=== PATIENT | female | born 1995 | race African-American/Black ===

== ENCOUNTER 2018-01-24 21:45 | Inpatient (IN) | payer OTHER ==
[~2018-01-24] VITALS: Ht 160 cm; Wt 93.4 kg
[2018-01-24 21:53] VITALS: BP 102/52
[2018-01-24] MEDS ORDERED: NACL 0.9% 1,000 ML IV SCH (22:14)
[2018-01-24] MEDS ORDERED: ONDANSETRON 4 MG/2 ML VIAL IVP ONE (22:15)
[2018-01-24] MEDS ORDERED: PANTOPRAZOLE 40 MG INJ VIAL IVP ONE (22:15)
[2018-01-24] MEDS ORDERED: KETOROLAC 30 MG/ML VIAL IVP ONE (22:50)
[2018-01-24 22:53] LABS: MEAN CORPUSCULAR HGB CONC 33 g/dL (33-37)
[2018-01-24 23:02] LABS: HEMATOCRIT 40.2 % (36-48); HEMOGLOBIN 13.1 g/dL (12.0-16.0); MEAN CORPUSCULAR HEMOGLOBIN 29 pg (27-31); MEAN CORPUSCULAR VOLUME 87.8 fL (80-94); PLATELET COUNT (AUTO) 501 K/uL (140-450); RED BLOOD CELL COUNT(AUTO) 4.58 MIL/uL (4.20-5.40)
[2018-01-24 23:15] LABS: WHITE BLOOD COUNT (AUTO) 62.6 K/uL (4.8-10.8)
[2018-01-24 23:16] LABS: ANION GAP 17.4 (8-16); CARBON DIOXIDE 21.3 mmol/L (21-32); CREATININE 2.8 mg/dL (0.6-1.3); POTASSIUM 3.7 mmol/L (3.5-5.1)
[2018-01-24] MEDS ORDERED: NACL 0.9% 1,500 ML IV ONE (23:20)
[2018-01-24] MEDS ORDERED: PIPERACILLIN/TAZOBACTAM 3.375 GM in DEXTROSE 5% 50 ML IV ONE (23:20)
[2018-01-24] MEDS ORDERED: NACL 0.9% 250 ML IV ONE (23:20)
[2018-01-24] MEDS ORDERED: ACETAMINOPHEN EXTRA STRENGTH 500 MG TAB PO ONE (23:20)
[2018-01-24 23:22] LABS: ALBUMIN 3.1 g/dL (3.4-5.0)
[2018-01-24 23:29] LABS: LYMPHOCYTES % (MANUAL) 1 % (20-46); METAMYELOCYTES % 1 % (0-0)
[2018-01-24] MEDS ORDERED: BUS5 PO (23:36)
[2018-01-24] MEDS ORDERED: ALBU0.0912 IH (23:36)
[2018-01-24] MEDS ORDERED: LAM25 PO (23:36)
[2018-01-24] MEDS ORDERED: TRAZ-343 PO (23:36)
[2018-01-24 23:40] LABS: APPEARANCE,URINE TURBID (CLEAR); BLOOD, URINE SMALL (NEGATIVE); COLOR,URINE YELLOW (YELLOW); LEUKOCYTE ESTERASE ,URINE TRACE (NEGATIVE); NITRITE, URINE NEGATIVE (NEGATIVE); UGLUCOSE NEGATIVE (NEGATIVE)
[2018-01-24] MEDS ORDERED: PIPERACILLIN/TAZOBACTAM 3.375 GM VIAL IV ONE (23:43)
[2018-01-24 23:44] LABS: BILIRUBIN,URINE MODERATE (NEGATIVE)
[2018-01-24 23:45] LABS: RBC,URINE 0-5 (RARE) /HPF (0-5)
[2018-01-24 23:47] LABS: FINE GRANULAR CASTS,URINE 0-2 /LPF (None Seen); WBC,URINE 60-80 /HPF (0-5)
[2018-01-25] VITALS (12 sets, daily range): BP systolic 80–108; BP diastolic 34–55
[2018-01-25] MEDS ORDERED: MORPHINE SULFATE 4 MG/ML SYR IVP PRN ×2 (00:35→12:50)
[2018-01-25] MEDS ORDERED: HYDROcodone/APAP 5/325 MG 1 TAB TAB PO PRN (00:35)
[2018-01-25] MEDS ORDERED: VANCOMYCIN PER PHARMACY MC PRN (00:45)
[2018-01-25] MEDS: ALBUTEROL 0.083% 2.5 MG/3 ML NEBU IH PRN ×2 (00:50→07:49)
[2018-01-25] MEDS: LEVOFLOXACIN 250 MG/D5 PREMIX 50 ML IV SCH (01:04)
[2018-01-25] MEDS: DEXT 5% / NACL 0.45% 1,000 ML IV SCH ×3 (02:45→15:08)
[2018-01-25] MEDS ORDERED: PIPERACILLIN/TAZOBACTAM 2.25 GM in DEXTROSE 5% 50 ML IV SCH (05:00)
[2018-01-25] MEDS ORDERED: WATER STERILE 20 ML MC ONE (05:23)
[2018-01-25] MEDS ORDERED: VANCOMYCIN 500 MG VIAL PO SCH (06:00)
[2018-01-25] MEDS ORDERED: MAG SULF 2000 MG/WATER PREMIX 50 ML IV ONE (08:15)
[2018-01-25] MEDS ORDERED: NACL 0.9% 500 ML IV ONE (08:15)
[2018-01-25] MEDS ORDERED: MAG SULF 2000 MG/WATER PREMIX 50 ML IV SCH (08:24)
[2018-01-25] MEDS ORDERED: NACL 0.9% 1,000 ML IV ONE (08:25)
[2018-01-25] MEDS: ACETAMINOPHEN 325 MG TAB PO PRN (08:35)
[2018-01-25] MEDS: ALBUMIN HUMAN 25% 100 ML IV SCH ×2 (08:38→20:40)
[2018-01-25] MEDS ORDERED: busPIRone 5 MG TAB PO SCH (09:00)
[2018-01-25] MEDS ORDERED: lamoTRIgine 25 MG TAB PO SCH (09:00)
[2018-01-25] MEDS: ONDANSETRON 4 MG/2 ML VIAL IVP PRN ×3 (09:05→18:08)
[2018-01-25] MEDS: MIDODRINE 5 MG TAB PO SCH ×3 (09:22→18:09)
[2018-01-25] MEDS ORDERED: VANCOMYCIN 1GM/DEXT 5% PREMIX 200 ML IV SCH (10:00)
[2018-01-25] MEDS ORDERED: traMADol 50 MG TAB PO PRN ×2 (10:15→10:30)
[2018-01-25 10:31] LABS: HEMATOCRIT 32.2 % (36-48); HEMOGLOBIN 10.4 g/dL (12.0-16.0); MEAN CORPUSCULAR HEMOGLOBIN 29 pg (27-31); MEAN CORPUSCULAR HGB CONC 32 g/dL (33-37); MEAN CORPUSCULAR VOLUME 88.6 fL (80-94); PLATELET COUNT (AUTO) 400 K/uL (140-450); RED BLOOD CELL COUNT(AUTO) 3.63 MIL/uL (4.20-5.40); RED CELL DISTRIBUTION WIDTH 15.3 % (11.6-13.7)
[2018-01-25 10:34] LABS: WHITE BLOOD COUNT (AUTO) 58.9 K/uL (4.8-10.8)
[2018-01-25 11:05] LABS: METAMYELOCYTES % 2 % (0-0)
[2018-01-25 11:26] LABS: ANION GAP 17.3 (8-16); CARBON DIOXIDE 18.3 mmol/L (21-32); CREATININE 2.9 mg/dL (0.6-1.3); POTASSIUM 3.6 mmol/L (3.5-5.1)
[2018-01-25] MEDS ORDERED: PHARMACY COMMENTS MC SCH (12:00)
[2018-01-25] MEDS ORDERED: KETOROLAC 30 MG/ML VIAL IVP PRN (12:20)
[2018-01-25] MEDS: VANCOMYCIN 500 MG VIAL PO SCH ×2 (12:24→17:15)
[2018-01-25] MEDS: PIPER/TAZO 2.25GM/D5W PREMIX 50 ML IV SCH ×2 (12:26→20:40)
[2018-01-25] MEDS ORDERED: KETOROLAC 15 MG/ML VIAL IVP PRN (12:30)
[2018-01-25] MEDS: MORPHINE SULFATE 4 MG/ML SYR IVP PRN ×2 (13:18→18:32)
[2018-01-25 14:55] LABS: BILIRUBIN,URINE SMALL (NEGATIVE); BLOOD, URINE TRACE-I (NEGATIVE); COLOR,URINE YELLOW (YELLOW); LEUKOCYTE ESTERASE ,URINE TRACE (NEGATIVE); NITRITE, URINE NEGATIVE (NEGATIVE); UGLUCOSE NEGATIVE (NEGATIVE)
[2018-01-25 14:56] LABS: APPEARANCE,URINE SLIGHTLY HAZY (CLEAR)
[2018-01-25] MEDS ORDERED: PHARMACY COMMENTS MC PRN (15:43)
[2018-01-25 15:46] LABS: RBC,URINE 3-10 (FEW) /HPF (0-5)
[2018-01-25 15:47] LABS: URINE AMORPHOUS URATE 2+ /HPF (None Seen)
[2018-01-25] MEDS: SODIUM BICARBONATE 650 MG TAB PO SCH (17:13)
[2018-01-25] MEDS ORDERED: SODIUM BICARBONATE 650 MG TAB PO ONE (18:00)
[2018-01-25] MEDS: NACL 0.9% 1,000 ML IV SCH (18:26)
[2018-01-25] MEDS ORDERED: ALBUMIN HUMAN 25% 100 ML IV ONE (19:00)
[2018-01-25] MEDS: traZODone 50 MG TAB PO SCH (20:40)
[2018-01-25] MEDS: busPIRone 5 MG TAB PO SCH (20:40)
[2018-01-26] VITALS (9 sets, daily range): BP systolic 91–113; BP diastolic 37–63
[2018-01-26] MEDS: MORPHINE SULFATE 4 MG/ML SYR IVP PRN ×4 (00:21→20:42)
[2018-01-26] MEDS: VANCOMYCIN 500 MG VIAL PO SCH ×4 (00:22→18:08)
[2018-01-26] MEDS: SODIUM BICARBONATE 650 MG TAB PO SCH ×3 (00:22→12:04)
[2018-01-26] MEDS: LEVOFLOXACIN 250 MG/D5 PREMIX 50 ML IV SCH (00:25)
[2018-01-26] MEDS: NACL 0.9% 1,000 ML IV SCH ×2 (03:45→17:00)
[2018-01-26] MEDS: ACETAMINOPHEN 325 MG TAB PO PRN ×2 (04:28→08:32)
[2018-01-26] MEDS: PIPER/TAZO 2.25GM/D5W PREMIX 50 ML IV SCH ×3 (05:45→20:36)
[2018-01-26] MEDS: MIDODRINE 5 MG TAB PO SCH ×3 (06:30→18:07)
[2018-01-26 06:57] LABS: ANION GAP 17.9 (8-16); CARBON DIOXIDE 19.9 mmol/L (21-32); CREATININE 2.4 mg/dL (0.6-1.3); POTASSIUM 3.8 mmol/L (3.5-5.1)
[2018-01-26] MEDS: ONDANSETRON 4 MG/2 ML VIAL IVP PRN ×2 (07:59→12:04)
[2018-01-26] MEDS: lamoTRIgine 25 MG TAB PO SCH (08:33)
[2018-01-26] MEDS: busPIRone 5 MG TAB PO SCH ×2 (08:33→20:40)
[2018-01-26] MEDS ORDERED: VANCOMYCIN 1,500 MG in DEXTROSE 5% 500 ML IV SCH (09:00)
[2018-01-26 10:17] LABS: HEMATOCRIT 32.8 % (36-48); HEMOGLOBIN 10.4 g/dL (12.0-16.0); MEAN CORPUSCULAR HEMOGLOBIN 28 pg (27-31); MEAN CORPUSCULAR HGB CONC 32 g/dL (33-37); MEAN CORPUSCULAR VOLUME 88.4 fL (80-94); PLATELET COUNT (AUTO) 416 K/uL (140-450); RED BLOOD CELL COUNT(AUTO) 3.71 MIL/uL (4.20-5.40); RED CELL DISTRIBUTION WIDTH 15.8 % (11.6-13.7)
[2018-01-26 10:49] LABS: WHITE BLOOD COUNT (AUTO) 49.8 K/uL (4.8-10.8)
[2018-01-26 10:50] LABS: LYMPHOCYTES % (MANUAL) 2 % (20-46); MONOCYTES % (MANUAL) 3 % (5-12)
[2018-01-26] MEDS: traZODone 50 MG TAB PO SCH (20:40)
[2018-01-27] VITALS: BP 118/57
[2018-01-27] MEDS: NACL 0.9% 1,000 ML IV SCH ×3 (00:10→18:45)
[2018-01-27] MEDS: LEVOFLOXACIN 250 MG/D5 PREMIX 50 ML IV SCH (01:09)
[2018-01-27] MEDS: ALBUTEROL 0.083% 2.5 MG/3 ML NEBU IH PRN (01:30)
[2018-01-27] MEDS: ACETAMINOPHEN 325 MG TAB PO PRN ×2 (02:07→08:22)
[2018-01-27] MEDS: MORPHINE SULFATE 4 MG/ML SYR IVP PRN ×4 (02:08→16:54)
[2018-01-27 04:00] VITALS: BP 91/37
[2018-01-27] MEDS: PIPER/TAZO 2.25GM/D5W PREMIX 50 ML IV SCH ×3 (04:51→20:20)
[2018-01-27] MEDS: VANCOMYCIN 500 MG VIAL PO SCH ×4 (06:00→18:43)
[2018-01-27 06:26] LABS: HEMATOCRIT 29.2 % (36-48); HEMOGLOBIN 9.6 g/dL (12.0-16.0); MEAN CORPUSCULAR HEMOGLOBIN 29 pg (27-31); MEAN CORPUSCULAR HGB CONC 33 g/dL (33-37); MEAN CORPUSCULAR VOLUME 86.9 fL (80-94); PLATELET COUNT (AUTO) 370 K/uL (140-450); RED BLOOD CELL COUNT(AUTO) 3.36 MIL/uL (4.20-5.40); RED CELL DISTRIBUTION WIDTH 15.2 % (11.6-13.7)
[2018-01-27] MEDS: MIDODRINE 5 MG TAB PO SCH ×3 (07:02→18:44)
[2018-01-27 08:05] VITALS: BP 113/70
[2018-01-27 08:12] LABS: LYMPHOCYTES % (MANUAL) 2 % (20-46); MONOCYTES % (MANUAL) 2 % (5-12); WHITE BLOOD COUNT (AUTO) 37.2 K/uL (4.8-10.8)
[2018-01-27] MEDS: busPIRone 5 MG TAB PO SCH ×2 (08:22→22:02)
[2018-01-27] MEDS: lamoTRIgine 25 MG TAB PO SCH (08:22)
[2018-01-27 09:31] LABS: ALBUMIN 2.2 g/dL (3.4-5.0); ANION GAP 16.7 (8-16); CARBON DIOXIDE 18.7 mmol/L (21-32); CREATININE 1.4 mg/dL (0.6-1.3); POTASSIUM 3.4 mmol/L (3.5-5.1); TOTAL BILIRUBIN 1.7 mg/dL (0.0-1.0)
[2018-01-27] MEDS: VANCOMYCIN 750 MG in DEXTROSE 5% 250 ML IV SCH ×2 (10:30→22:03)
[2018-01-27] MEDS ORDERED: PRO5 PO (10:58)
[2018-01-27] MEDS ORDERED: Vancomycin Per Pharmacy MC (10:58)
[2018-01-27] MEDS ORDERED: ONDA2SOL45 IVP (10:58)
[2018-01-27] MEDS ORDERED: MORP4SOL10 IVP (10:58)
[2018-01-27] MEDS ORDERED: PRON IH (10:58)
[2018-01-27] MEDS ORDERED: VAN500I PO (10:58)
[2018-01-27] MEDS ORDERED: TRAM50TA3 PO (10:58)
[2018-01-27 11:37] VITALS: BP 95/49
[2018-01-27] MEDS: ONDANSETRON 4 MG/2 ML VIAL IVP PRN ×3 (12:44→20:20)
[2018-01-27 16:00] VITALS: BP 108/64
[2018-01-27] MEDS ORDERED: MAGNESIUM OXIDE 400 MG TAB PO SCH (16:00)
[2018-01-27 20:00] VITALS: BP 133/74
[2018-01-27] MEDS: traZODone 50 MG TAB PO SCH (22:02)
[2018-01-28 00:20] VITALS: BP 115/74
[2018-01-28] MEDS: ACETAMINOPHEN 325 MG TAB PO PRN (00:25)
[2018-01-28] MEDS: LEVOFLOXACIN 250 MG/D5 PREMIX 50 ML IV SCH (00:25)
[2018-01-28] MEDS: MORPHINE SULFATE 4 MG/ML SYR IVP PRN ×4 (00:26→18:36)
[2018-01-28] MEDS: VANCOMYCIN 500 MG VIAL PO SCH ×4 (00:32→17:16)
[2018-01-28 04:30] VITALS: BP 113/56
[2018-01-28] MEDS: PIPER/TAZO 2.25GM/D5W PREMIX 50 ML IV SCH ×2 (05:11→14:03)
[2018-01-28] MEDS: NACL 0.9% 1,000 ML IV SCH (06:10)
[2018-01-28] MEDS: MIDODRINE 5 MG TAB PO SCH ×3 (06:39→19:00)
[2018-01-28 08:00] VITALS: BP 120/70
[2018-01-28 08:03] LABS: ANION GAP 13.2 (8-16); CARBON DIOXIDE 23.5 mmol/L (21-32); CREATININE 1.1 mg/dL (0.6-1.3); POTASSIUM 3.7 mmol/L (3.5-5.1)
[2018-01-28] MEDS: busPIRone 5 MG TAB PO SCH (08:58)
[2018-01-28] MEDS: lamoTRIgine 25 MG TAB PO SCH (08:59)
[2018-01-28] MEDS ORDERED: VANCOMYCIN 1GM/DEXT 5% PREMIX 200 ML IV SCH (10:00)
[2018-01-28 12:00] VITALS: BP 125/67
[2018-01-28] MEDS: ONDANSETRON 4 MG/2 ML VIAL IVP PRN (13:24)
[2018-01-28 13:51] LABS: HEMATOCRIT 32.5 % (36-48); MEAN CORPUSCULAR HEMOGLOBIN 29 pg (27-31); MEAN CORPUSCULAR HGB CONC 34 g/dL (33-37); MEAN CORPUSCULAR VOLUME 85.7 fL (80-94); PLATELET COUNT (AUTO) 380 K/uL (140-450); RED BLOOD CELL COUNT(AUTO) 3.79 MIL/uL (4.20-5.40); RED CELL DISTRIBUTION WIDTH 15.5 % (11.6-13.7)
[2018-01-28 14:10] LABS: WHITE BLOOD COUNT (AUTO) 30.7 K/uL (4.8-10.8)
[2018-01-28 14:15] LABS: EOSINOPHILS % (MANUAL) 4 % (0-4); LYMPHOCYTES % (MANUAL) 7 % (20-46); MONOCYTES % (MANUAL) 3 % (5-12)
[2018-01-28] MEDS ORDERED: VANCOMYCIN PER PHARMACY MC PRN (14:15)
[2018-01-28] MEDS ORDERED: ONDANSETRON 4 MG/2 ML VIAL IVP PRN (14:20)
[2018-01-28] MEDS ORDERED: ALBUTEROL 0.083% 2.5 MG/3 ML NEBU INH PRN (14:20)
[2018-01-28 16:00] VITALS: BP 102/52
[2018-01-28] MEDS ORDERED: traZODone 50 MG TAB PO SCH (21:00)
[2018-01-29] MEDS ORDERED: LEVOFLOXACIN 250 MG/D5 PREMIX 50 ML IV SCH (01:00)
== END 2018-01-28 19:00 | disposition short-term general hospital (02) | DRG 720 ==
LOC: MED 21:45 → MIC 01-25 00:41 → MTU 01-26 16:45
PROVIDERS: ADMIT Hospitalist; ATTEND Hospitalist
DX: A41.9 Sepsis, unspecified organism (principal); N17.0 Acute kidney failure with tubular necrosis; R65.21 Severe sepsis with septic shock; J84.81 Lymphangioleiomyomatosis; J18.9 Pneumonia, unspecified organism; E87.8 Other disorders of electrolyte and fluid balance, not elsewhere classified; E87.1 Hypo-osmolality and hyponatremia; N39.0 Urinary tract infection, site not specified; E87.6 Hypokalemia; E86.0 Dehydration; R09.89 Other specified symptoms and signs involving the circulatory and respiratory systems; M89.9 Disorder of bone, unspecified; I89.0 Lymphedema, not elsewhere classified; E86.1 Hypovolemia; F32.9 Major depressive disorder, single episode, unspecified; F41.9 Anxiety disorder, unspecified; G40.909 Epilepsy, unspecified, not intractable, without status epilepticus; N18.9 Chronic kidney disease, unspecified; Z90.81 Acquired absence of spleen; Z79.899 Other long term (current) drug therapy; Z90.49 Acquired absence of other specified parts of digestive tract
CPT/HCPCS: 36415; 36600; 71045; 71250; 76705; 76770; 80048; 80053; 80202; 81001; 82803; 83605; 83735; 84300; 85025; 85610; 85730; 87040; 87070; 87081; 87086; 87205; 87804; 89220; 93005; 94640; 96361; 96365; 96367; 96375; 99291; C9113; J1885; J1956; J2270; J2405; J2543; J3370; J3475; J7030; J7060; J7613; P9046; Q0092

== ENCOUNTER 2018-02-27 11:24 | Inpatient (IN) | payer OTHER ==
[~2018-02-27] VITALS: Ht 160 cm; Wt 82.6 kg
[~2018-02-27 11:24] MED LIST: ALBU0.0912 IH; BUS5 PO; LAM25 PO; MORP4SOL10 IVP; ONDA2SOL45 IVP; PRO5 PO; PRON IH; TRAM50TA3 PO; TRAZ-343 PO; VAN500I PO; Vancomycin Per Pharmacy MC
[2018-02-27 11:40] VITALS: BP 130/67
[2018-02-27] MEDS ORDERED: ALBUTEROL SULFATE/IPRATROPIU 3 ML SOL IH ONE (11:55)
[2018-02-27] MEDS ORDERED: predniSONE 20 MG TAB PO ONE (11:55)
[2018-02-27] MEDS ORDERED: ALBUTEROL 0.083% 2.5 MG/3 ML NEBU INH ONE (11:55)
--- NOTE | 2018-02-27 12:00 | NUR ---
22F BIB SELF C/O SOB X 3 DAYS. PT SAT AT 98% AT THIS TIME, PT STATES SHE HAD A FEVER OF 102 YESTERDAY. PT ALSO HAS NON-PRODUCTIVE COUGH, + VOMITING, + NAUSEA, -DIARRHEA. PT IS AOX4 TO PERSON, TIME, SITUATION, AND PLACE, RR ARE EVEN AND UNLABORED. CLEAR SPEECH WITH FULL SETENCES. LUNG SOUND DIMISHED BL AT BASES. PULSE NT=248% ON RA. SKIN IS DRY/WARM/COLOR APPRIORIATE FOR ETHNICITY. ABD SOFT AND NON TENDER. NAD. PT CHANGED INTO GOWN AND TO PULSE OX/PULSE MONITORING. AWAITIING ER MD AMBROSIO.
--- NOTE | 2018-02-27 12:04 | NUR ---
ADMITTING DX: SOB HX: ASTHMA AWAKE AND ALERT RESPONSIVE TO RF MANAGER VERBAL COMMANDS HFW POSITION EDUCATION PROVIDED TO PATIENT WITH ACKNOWLEDGEMENT ON HHN THERAPY AND RESPIRATORY DRUGS HHN THERAPY GIVEN ORDERED
--- NOTE | 2018-02-27 12:06 | NUR ---
rt by bedside administering breathing txt; patient tolerating well
--- NOTE | 2018-02-27 12:09 | NUR ---
PATIENT REFUSED HHN THERAPY AFTRE 5 MINS PATIENT STATES "THAT IT IS PAINFUL TO BREATH" LILI/JASON NOTIFIED
--- NOTE | 2018-02-27 12:12 | NUR ---
patient refused breathing txt after 5 minutes of breathing txt; informed er md jones
[2018-02-27] MEDS ORDERED: MORPHINE SULFATE 4 MG/ML SYR IM ONE (13:00)
--- NOTE | 2018-02-27 13:30 | NUR ---
administered pain medication per er md order. will continue to monitor.
[2018-02-27] MEDS ORDERED: VANCOMYCIN 1,000 MG in DEXTROSE 5% 250 ML IV ONE (13:50)
--- NOTE | 2018-02-27 14:20 | NUR ---
DR. BUI MADE AWARE THAT PT STATES SHE FEELS NAUSEOUS AT THIS TIME. ORDERS TO BE PUT IN
[2018-02-27 14:29] LABS: HEMATOCRIT 33.6 % (36-48); HEMOGLOBIN 10.9 g/dL (12.0-16.0); MEAN CORPUSCULAR HEMOGLOBIN 28 pg (27-31); MEAN CORPUSCULAR HGB CONC 32 g/dL (33-37); MEAN CORPUSCULAR VOLUME 85.4 fL (80-94); PLATELET COUNT (AUTO) 629 K/uL (140-450); RED BLOOD CELL COUNT(AUTO) 3.94 MIL/uL (4.20-5.40); RED CELL DISTRIBUTION WIDTH 15.3 % (11.6-13.7); WHITE BLOOD COUNT (AUTO) 28.8 K/uL (4.8-10.8)
[2018-02-27] MEDS ORDERED: MORPHINE SULFATE 4 MG/ML SYR IVP ONE (14:35)
[2018-02-27] MEDS ORDERED: ONDANSETRON 4 MG/2 ML VIAL IVP ONE (14:35)
[2018-02-27] MEDS ORDERED: PIPERACILLIN/TAZOBACTAM 3.375 GM in DEXTROSE 5% 50 ML IV ONE (14:35)
--- NOTE | 2018-02-27 14:35 | NUR ---
PT WAS NOT IN UNIT AT TIME OF ORDER.
[2018-02-27] MEDS ORDERED: VANCOMYCIN 1,000 MG VIAL ONE (14:38)
[2018-02-27 14:48] LABS: ALBUMIN 3.2 g/dL (3.4-5.0); ANION GAP 16.7 (8-16); CARBON DIOXIDE 21.1 mmol/L (21-32); CREATININE 0.7 mg/dL (0.6-1.3); POTASSIUM 3.8 mmol/L (3.5-5.1); TOTAL BILIRUBIN 0.4 mg/dL (0.0-1.0)
[2018-02-27 15:26] LABS: LYMPHOCYTES % (MANUAL) 2 % (20-46); MONOCYTES % (MANUAL) 2 % (5-12)
[2018-02-27] MEDS ORDERED: traMADol 50 MG TAB PO PRN (15:35)
[2018-02-27] MEDS ORDERED: HYDROcodone/APAP 5/325 MG 1 TAB TAB PO PRN (15:35)
[2018-02-27] MEDS ORDERED: ALBUTEROL 0.083% 2.5 MG/3 ML NEBU INH PRN (15:35)
[2018-02-27] MEDS ORDERED: ONDANSETRON 4 MG/2 ML VIAL IVP PRN (15:35)
[2018-02-27] MEDS ORDERED: ACETAMINOPHEN 325 MG TAB PO PRN (15:35)
[2018-02-27 16:07] LABS: APPEARANCE,URINE CLEAR (CLEAR); BILIRUBIN,URINE NEGATIVE (NEGATIVE); BLOOD, URINE 1+ (NEGATIVE); COLOR,URINE YELLOW (YELLOW); LEUKOCYTE ESTERASE ,URINE NEGATIVE (NEGATIVE); NITRITE, URINE NEGATIVE (NEGATIVE); UGLUCOSE NEGATIVE (NEGATIVE)
--- NOTE | 2018-02-27 16:25 | NUR ---
Patient will be admitted to [facility]. Admited to Med Surg. Will go to room 111-B. Belongings list completed. Bedside Report to Morris GOMEZ.
--- NOTE | 2018-02-27 16:30 | NUR ---
RECEIVED REPORT FROM ER NURSE. PT IN STABLE CONDITION. RESPIRATIONS EVEN AND UNLABORED. IV INTACT AND PATENT. REVIEWED CARE PLAN WITH PT, PT VERBALIZED UNDERSTANDING. SAFETY MEASURES IN PLACE. CALL LIGHT AT BEDSIDE. BED IN LOW POSITION. WILL CONTINUE TO MONITOR.
[2018-02-27 16:33] LABS: RBC,URINE 0-5 (RARE) /HPF (0-5); WBC,URINE 0-5 (RARE) /HPF (0-5)
[2018-02-27] MEDS ORDERED: VANCOMYCIN PER PHARMACY MC PRN (17:05)
--- NOTE | 2018-02-27 17:30 | NUR ---
PT SIGNED CONSENT FORM FOR ABDOMINAL US WITH CONTRAST.
[2018-02-27] MEDS: HYDROcodone/APAP 5/325 MG 1 TAB TAB PO PRN (17:49)
[2018-02-27] MEDS: DEXT 5% / NACL 0.45% 1,000 ML IV SCH (18:51)
--- NOTE | 2018-02-27 19:25 | NUR ---
RECEIVED PATIENT AWAKE SITTING ON BED WATCHING TV. PATIENT AAOX4, EXPLAINED PLAN OF CARE. CALL LIGHT WITHIN REACH. BED IN LOW LOCKED POSITION. CALL LIGHT WITHIN REACH. WILL CONTINUE TO MONITOR.
--- NOTE | 2018-02-27 19:25 | NUR ---
GAVE REPORT TO SAW BOSS NURSE FOR CONTINUITY OF CARE. PT IN STABLE CONDITION.
[2018-02-27 19:48] VITALS: BP 104/63
[2018-02-27] MEDS: traZODone 50 MG TAB PO SCH (20:38)
[2018-02-27] MEDS: busPIRone 5 MG TAB PO SCH (20:38)
[2018-02-27] MEDS: PIPER/TAZO 3.375GM/D5W PREMIX 50 ML IV SCH (20:45)
[2018-02-27] MEDS ORDERED: PIPERACILLIN/TAZOBACTAM 3.375 GM in DEXTROSE 5% 50 ML IV SCH (21:00)
--- NOTE | 2018-02-27 21:00 | NUR ---
V/S TAKEN AND RECORDED. SCHEDULE MEDICATION GIVEN AND TOLERATED WELL. NO S/SO FO DISTRESS NOTED AT THIS TIME. WILL CONTINUE TO MONITOR. CALL LIGHT WITHIN REACH.
[2018-02-28] VITALS: BP 110/58
--- NOTE | 2018-02-28 | NUR ---
V/ S TAKEN AND RECORDED. NO S/S OF DISTRESS NOTED. ALL NEEDS ATTENDED. WILL CONTINUE TO MONITOR.
[2018-02-28] MEDS: VANCOMYCIN 1,250 MG in DEXTROSE 5% 250 ML IV SCH ×2 (02:27→20:11)
--- NOTE | 2018-02-28 04:00 | NUR ---
SEEN PATIENT ASLEEP ON BED IN HIGH FOWLERS POSITION. NO S/S OF DISTRESS NOTED AT THIS TIME. CALL LIGHT EITHIN REACH. WILL CONTINUE TO MONITOR.
[2018-02-28] MEDS: DEXT 5% / NACL 0.45% 1,000 ML IV SCH ×2 (04:52→18:12)
[2018-02-28] MEDS: PIPER/TAZO 3.375GM/D5W PREMIX 50 ML IV SCH ×4 (04:56→21:44)
--- NOTE | 2018-02-28 07:15 | NUR ---
GAVE REPORT TO AM SHIFT RN AT BEDSIDE FOR CONTINUITY OF CARE. PATIENT IN STABLE CONDITION.
--- NOTE | 2018-02-28 07:16 | NUR ---
RECEIVED REPORT FROM THERMITE WELDER NURSE FOR CONTINUITY OF CARE. PT IN STABLE CONDITION. RESPIRATIONS EVEN AND UNLABORED. IV INTACT AND PATENT. SAFETY MEASURES IN PLACE. BED IN LOW POSITION. CALL LIGHT AT BEDSIDE. WILL CONTINUE TO MONITOR.
[2018-02-28 07:43] LABS: ALBUMIN 2.6 g/dL (3.4-5.0); ANION GAP 14.7 (8-16); CREATININE 0.7 mg/dL (0.6-1.3); POTASSIUM 3.7 mmol/L (3.5-5.1); TOTAL BILIRUBIN 0.4 mg/dL (0.0-1.0)
--- NOTE | 2018-02-28 07:46 | NUR ---
RECEIVED PATIENT ON ROOM AIR, O2 SAT 100%. BREATH SOUNDS COARSE. DENIES SOB. NO HHN GIVEN, NOT INDICATED AT THIS TIME. NO RESPIRATORY DISTRESS NOTED AT THIS TIME. WILL CONTINUE TO MONITOR.
[2018-02-28 07:53] LABS: BASOPHILS % (AUTO) 0.2 % (0.0-2.0); EOSINOPHILS % (AUTO) 0.1 % (0.0-4.0); HEMATOCRIT 27.9 % (36-48); LYMPHOCYTES # (AUTO) 1.7 K/uL (2.5-16.5); LYMPHOCYTES % (AUTO) 5.9 % (20.5-51.1); MEAN CORPUSCULAR HEMOGLOBIN 28 pg (27-31); MEAN CORPUSCULAR HGB CONC 32 g/dL (33-37); MEAN CORPUSCULAR VOLUME 85.3 fL (80-94); MONOCYTES # (AUTO) 2.2 K/uL (0.8-1.0); MONOCYTES % (AUTO) 7.5 % (1.7-9.3); NEUTROPHILS % (AUTO) 86.3 % (42.2-75.2); PLATELET COUNT (AUTO) 530 K/uL (140-450); RED BLOOD CELL COUNT(AUTO) 3.27 MIL/uL (4.20-5.40); RED CELL DISTRIBUTION WIDTH 15.2 % (11.6-13.7)
[2018-02-28 08:00] VITALS: BP 121/60
--- NOTE | 2018-02-28 08:24 | NUR ---
PATIENT HAS BEEN SCREENED AND CATEGORIZED HIGH NUTRITION RISK. PATIENT WILL BE SEEN WITHIN 1-2 DAYS OF ADMISSION. 02/28/18-03/01/[address]
[2018-02-28] MEDS: busPIRone 5 MG TAB PO SCH ×2 (09:27→20:39)
--- NOTE | 2018-02-28 10:00 | NUR ---
RECEIVED SPUTUM SAMPLE, SENT TO LAB. WILL CONTINUE TO MONITOR.
--- NOTE | 2018-02-28 13:00 | NUR ---
UNABLE TO PLACE 20G IV FOR CAT SCAN PROCEDURE WILL CONTACT DOCTOR WITH ISSUE.
--- NOTE | 2018-02-28 13:01 | NUR ---
PT C/O IV LINE LEFT AC PAIN, PT REQUEST PICC LINE AT THIS TIME. UNABLE TO GIVE ZOSYN AT THIS TIME.
--- NOTE | 2018-02-28 13:02 | NUR ---
IV LINE WAS REMOVED DUE TO PT COMPLAINT OF PAIN. NO SKIN INJURY NOTED. IV REMOVED LUMEN INTACT.
--- NOTE | 2018-02-28 13:35 | NUR ---
LAB CALLED FOR ANOTHER SPUTUM SAMPLE FROM PT. NOT ENOUGH SPUTUM FOR THE TEST ORDERED. WILL COLLECT.
--- NOTE | 2018-02-28 14:00 | NUR ---
VANCO NOT ADMINISTERED DUE TO NO IV ACCESS.
--- NOTE | 2018-02-28 15:29 | NUR ---
PICC LINE PLACED IN LEFT UPPER ARM. WILL CONTINUE TO MONITOR.
[2018-02-28 15:46] LABS: PROTHROMBIN TIME 10.8 secs (10.8-13.4)
[2018-02-28 16:00] VITALS: BP 114/67
--- NOTE | 2018-02-28 16:00 | NUR ---
DRY KILN OPERATOR HELPER CALLED TO INFORM NURSE WAITING ON PICC LINE PLACEMENT REPORT BEFORE CAT SCAN CAN BE PERFORMED.
--- NOTE | 2018-02-28 18:10 | NUR ---
PT TAKEN TO FOR CAT SCAN. WILL CONTINUE TO MONITOR.
--- NOTE | 2018-02-28 19:25 | NUR ---
GAVE REPORT TO NIGHT NURSE FOR CONTINUITY OF CARE. PT IN STABLE CONDITION.
--- NOTE | 2018-02-28 19:30 | NUR ---
RECEIVED PATIENT RESTING ON BED IN HIGH FOWLERS POSITION. EXPLAIN PLAN OF CARE TO PATIENT AND VERBALIZED UNDERSTANDING. BED IN LOW LOCKED POSITION. CALL LIGHT WITHIN REACH. WILL CONTINUE TO MONITOR.
[2018-02-28] MEDS: traZODone 50 MG TAB PO SCH (20:39)
--- NOTE | 2018-02-28 21:00 | NUR ---
BASELINE V/S TAKEN AND RECORDED. SCHEDULE MEDICATION GIVEN AND TOLERATED WELL. DENIES PAIN AT THIS TIME. NO RESPIRATORY DISTRESS NOTED AT THIS TIME. PATIENT IN HIGH FOWLERS POSITION SUPPORTED BY PILLOW FOR COMFORT. CALL LIGHT WITHIN REACH. ALL NEEDS ATTENDED. WILL CONTINUE TO MONITOR.
[2018-03-01] VITALS: BP 105/52
--- NOTE | 2018-03-01 | NUR ---
V/S TAKEN AND RECORDED. NO S/S OF RESPIRATORY DISTRESS AT THIS TIME. WILL CONTINUE TO MONITOR.
[2018-03-01] MEDS: DEXT 5% / NACL 0.45% 1,000 ML IV SCH (02:00)
[2018-03-01] MEDS: VANCOMYCIN 1,250 MG in DEXTROSE 5% 250 ML IV SCH (02:00)
--- NOTE | 2018-03-01 02:00 | NUR ---
VANCOCIN NOT GIVEN AT THIS TIME. STILL WAITING FOR VANCOMYCIN THROUGH RESULT.CHARGE NURSE AWARE.
[2018-03-01] MEDS ORDERED: LORazepam 0.5 MG TAB PO PRN (02:25)
[2018-03-01] MEDS: PIPER/TAZO 3.375GM/D5W PREMIX 50 ML IV SCH ×2 (05:00→12:35)
--- NOTE | 2018-03-01 07:20 | NUR ---
ENDORSEMENT GIVEN TO AM SHIFT RN AT BEDSIDE FOR CONTINUITY OF CARE. PATIENT IN STABLE CONDITION.
[2018-03-01 07:51] LABS: BASOPHILS # (AUTO) 0.1 K/uL (0.00-0.22); BASOPHILS % (AUTO) 1.4 % (0.0-2.0); EOSINOPHILS # (AUTO) 0.3 K/uL (0-0.4); EOSINOPHILS % (AUTO) 3.2 % (0.0-4.0); HEMATOCRIT 29.5 % (36-48); HEMOGLOBIN 9.6 g/dL (12.0-16.0); LYMPHOCYTES # (AUTO) 1.5 K/uL (2.5-16.5); LYMPHOCYTES % (AUTO) 16.4 % (20.5-51.1); MEAN CORPUSCULAR HEMOGLOBIN 28 pg (27-31); MEAN CORPUSCULAR HGB CONC 33 g/dL (33-37); MONOCYTES # (AUTO) 1.3 K/uL (0.8-1.0); MONOCYTES % (AUTO) 14.3 % (1.7-9.3); NEUTROPHILS # (AUTO) 6.1 K/uL (1.8-7.7); NEUTROPHILS % (AUTO) 64.7 % (42.2-75.2); PLATELET COUNT (AUTO) 555 K/uL (140-450); RED BLOOD CELL COUNT(AUTO) 3.42 MIL/uL (4.20-5.40); RED CELL DISTRIBUTION WIDTH 15.3 % (11.6-13.7); WHITE BLOOD COUNT (AUTO) 9.4 K/uL (4.8-10.8)
--- NOTE | 2018-03-01 07:55 | NUR ---
PATIENT WAS AWAKE, ALERT. RESPIRATION EVEN, UNLABOR ON ROOM AIR. SKIN DRY AND WARM. MID LINE PATENT AND INTACT. COMPLAINED OF CHEST PAIN, THROBBING, RADIATE TO NECK, WILL MEDICATE PER ORDER. PLAN OF CARE WAS DISCUSSED WITH PATIENT. BED AT LOW POSITION, SIDE RAILS UP. CALL LIGHT WITHIN REACH
[2018-03-01 08:00] VITALS: BP 122/59
[2018-03-01 08:05] LABS: ANION GAP 14.1 (8-16); CARBON DIOXIDE 22.4 mmol/L (21-32); CREATININE 0.8 mg/dL (0.6-1.3); POTASSIUM 3.5 mmol/L (3.5-5.1); TOTAL BILIRUBIN 0.3 mg/dL (0.0-1.0)
[2018-03-01 08:06] LABS: ALBUMIN 2.5 g/dL (3.4-5.0)
--- NOTE | 2018-03-01 09:00 | NUR ---
PATIENT WAS AWAKE, ALERT. RESPIRATION EVEN, UNLABOR ON ROOM AIR. NO DISTRESS NOTED AT THIS TIME
[2018-03-01] MEDS: HYDROcodone/APAP 5/325 MG 1 TAB TAB PO PRN (09:10)
[2018-03-01] MEDS: busPIRone 5 MG TAB PO SCH (09:10)
--- NOTE | 2018-03-01 12:47 | NUR ---
DR. MCCORMICK WAS UNABLE TO CLEAR THE PATIENT DUE TO RESULT PENDING SPUTUM AND URINE CULTURE. PATIENT REQUESTED TO LEAVE A. DR. DUGAN WAS MADE AWARE. OK TO GIVE PATIENT PRESCRIPTIONS PER DR. DUGAN
--- NOTE | 2018-03-01 13:15 | NUR ---
RISKS OF LEAVING AMA WAS EXPLAINED TO PATIENT. PATIENT VERBALIZED UNDERSTANDING. AMA FORM WAS SIGN. MID LINE WAS REMOVED, CATHETER INTACT, NO ACTIVE BLEEDING SEEN. PRESCRIPTION WAS GIVEN AND EXPLAINED TO PATIENT. PATIENT VERBALIZED UNDERSTANDING. ID BAND WAS REMOVED. ALL BELONGINGS WERE TAKEN WITH THE PATIENT AND FAMILY.
[2018-03-01] MEDS ORDERED: VANCOMYCIN 1,250 MG in DEXTROSE 5% 250 ML IV SCH (20:00)
== END 2018-03-01 13:15 | disposition left against medical advice (07) | DRG 720 ==
LOC: MED 11:24 → MTU 15:38 → OBSVTOIN 02-28 09:24
PROVIDERS: ADMIT Hospitalist; ATTEND Hospitalist
PROC: 05HY33Z Insertion of Infusion Device into Upper Vein, Percutaneous Approach (ICD-10-PCS; principal; 2018-02-28)
DX: A41.50 Gram-negative sepsis, unspecified (principal); J84.81 Lymphangioleiomyomatosis; G40.909 Epilepsy, unspecified, not intractable, without status epilepticus; J45.909 Unspecified asthma, uncomplicated; Z79.899 Other long term (current) drug therapy; Z79.51 Long term (current) use of inhaled steroids; Z90.49 Acquired absence of other specified parts of digestive tract; Z90.81 Acquired absence of spleen; Z53.21 Procedure and treatment not carried out due to patient leaving prior to being seen by health care provider; E44.1 Mild protein-calorie malnutrition
CPT/HCPCS: 96372; 96374; 96375; 99218; 99285; G0378; 36415; 70492; 71045; 71270; 74170; 80053; 80202; 81001; 81025; 83605; 83880; 85025; 85610; 86140; 87040; 87070; 87081; 87086; 87186; 87205; 87449; 94640; C1751; J2270; J2405; J2543; J3370; J7060; J7512; J7613; J7620; Q0092; Q9967

== ENCOUNTER 2018-08-26 07:49 | Emergency (ER) | payer OTHER ==
[~2018-08-26] VITALS: Ht 160 cm; Wt 86.2 kg
[2018-08-26 07:50] VITALS: BP 120/63
--- NOTE | 2018-08-26 07:50 | NUR ---
PT TRIAGED AT BEDSIDE BED 11
--- NOTE | 2018-08-26 07:53 | NUR ---
Patient ambulated to bed 11 at this time.
--- NOTE | 2018-08-26 07:55 | NUR ---
BIB SELF C/O LEFT UPPER TOOTH PAIN X YESTERDAY & C/O LEFT SIDED CHEST PAIN RADIATING TO LEFT SHOULDER& LEFT UPPER BACK X AT 6 AM TODAY.HX: TRACIE'S PEÑA SYNDROME, LYMPHANGIOMATOSIS, HYPOTENSION. DENIES N/V/D; SKIN IS PINK/WARM/DRY; AAOX4 WITH EVEN AND STEADY GAIT;PATIENT STATES PAIN OF 10/10 AT THIS TIME; PATIENT POSITIONED FOR COMFORT; HOB ELEVATED; BEDRAILS UP X1; BED DOWN. ER MD MADE AWARE OF PT STATUS.
--- NOTE | 2018-08-26 08:06 | NUR ---
DR. FOSTER AT BEDSIDE TO EVALUATE PT.
[2018-08-26] MEDS ORDERED: KETOROLAC 60 MG/2 ML VIAL IM ONE (08:15)
--- NOTE | 2018-08-26 08:44 | NUR ---
x-RAY AT BEDSIDE
--- NOTE | 2018-08-26 08:58 | NUR ---
Lab at bedside
[2018-08-26 09:14] LABS: BASOPHILS % (AUTO) 0.3 % (0.0-2.0); EOSINOPHILS # (AUTO) 0.2 K/uL (0-0.4); EOSINOPHILS % (AUTO) 1.6 % (0.0-4.0); HEMATOCRIT 37.1 % (36-48); HEMOGLOBIN 12.3 g/dL (12.0-16.0); LYMPHOCYTES # (AUTO) 1.6 K/uL (2.5-16.5); LYMPHOCYTES % (AUTO) 11.4 % (20.5-51.1); MEAN CORPUSCULAR HEMOGLOBIN 30 pg (27-31); MEAN CORPUSCULAR HGB CONC 33 g/dL (33-37); MEAN CORPUSCULAR VOLUME 89.6 fL (80-94); MONOCYTES % (AUTO) 7.2 % (1.7-9.3); NEUTROPHILS # (AUTO) 11.1 K/uL (1.8-7.7); NEUTROPHILS % (AUTO) 79.5 % (42.2-75.2); PLATELET COUNT (AUTO) 364 K/uL (140-450); RED BLOOD CELL COUNT(AUTO) 4.13 MIL/uL (4.20-5.40); RED CELL DISTRIBUTION WIDTH 14.6 % (11.6-13.7)
--- NOTE | 2018-08-26 09:47 | NUR ---
Patient being reevaluated by dr manzo at bedside.
[2018-08-26 10:22] LABS: APPEARANCE,URINE SL CLOUDY (CLEAR); BILIRUBIN,URINE NEGATIVE (NEGATIVE); BLOOD, URINE NEGATIVE (NEGATIVE); COLOR,URINE YELLOW (YELLOW); LEUKOCYTE ESTERASE ,URINE NEGATIVE (NEGATIVE); NITRITE, URINE NEGATIVE (NEGATIVE); UGLUCOSE NEGATIVE (NEGATIVE)
[2018-08-26 10:43] LABS: ANION GAP 12.9 (8-16); CARBON DIOXIDE 22.9 mmol/L (21-32); CREATININE 0.7 mg/dL (0.6-1.3); POTASSIUM 3.8 mmol/L (3.5-5.1)
[2018-08-26 10:54] LABS: TOTAL BILIRUBIN 0.6 mg/dL (0.0-1.0)
[2018-08-26 10:55] LABS: ALBUMIN 3.7 g/dL (3.4-5.0)
[2018-08-26 11:05] VITALS: BP 107/53
--- NOTE | 2018-08-26 11:05 | NUR ---
Patient discharged with v/s stable. Written and verbal after care instructions given and explained. Patient alert, oriented and verbalized understanding of instructions. Ambulatory with steady gait. All questions addressed prior to discharge. ID band removed. Patient advised to follow up with PMD. Rx of penicillin & naprosyn given. Patient educated on indication of medication including possible reaction and side effects. Opportunity to ask questions provided and answered.
== END 2018-08-26 11:05 | disposition home or self-care (01) ==
LOC: MED 07:49
DX: K08.89 Other specified disorders of teeth and supporting structures (principal); R07.89 Other chest pain; J45.909 Unspecified asthma, uncomplicated; Z79.891 Long term (current) use of opiate analgesic; Z79.899 Other long term (current) drug therapy; Z79.2 Long term (current) use of antibiotics
CPT/HCPCS: 36415; 71045; 80053; 81003; 81025; 84484; 85025; 93005; 96372; 99284; J1885; Q0092

== ENCOUNTER 2018-12-29 06:16 | Emergency (ER) | payer OTHER ==
[~2018-12-29] VITALS: Ht 160 cm; Wt 84.8 kg
--- NOTE | 2018-12-29 06:23 | NUR ---
PT TAKEN TO BED 7
[2018-12-29 06:29] VITALS: BP 135/68
--- NOTE | 2018-12-29 06:30 | NUR ---
23/F PRESENTED TO ED WITH C/O LT KNEE PAIN S/P GETTING OUT OF BED, STATES KNEE "POPS OUT OF PLACE OFTEN, BUT USUALLY ABLE TO PUT IT BACK BUT NOT ABLE TO THIS TIME" PT STATES UNABLE TO BARE WEIGHT ON LT LEG. 10/10 PAIN UPON AMBULATION. VSS. PT STATES SHE DID NOT TAKE ANY PAIN MEDICATIONS PRIOR TO ARRIVING TO ED. NO SIGNS OF DISTRESS. WILL CONTINUE TO MONITOR. DENIES ALLERGIES PAST MED HX- "BONE CONDITION"
--- NOTE | 2018-12-29 06:48 | NUR ---
PT TAKEN TO XRAY
--- NOTE | 2018-12-29 06:57 | NUR ---
PT RETURN FROM XRAY
--- NOTE | 2018-12-29 07:09 | NUR ---
GAVE BEDSIDE REPORT TO DAYSHIFT JASON ARNETT.
--- NOTE | 2018-12-29 07:11 | NUR ---
RECEIVED REPORT FROM IC DESIGN ENGINEER RN. PT RESTING IN BED. DENIES PAIN WHILE RESTING IN BED. NO DISTRESS NOTED AT THIS TIME. FAMILY AT THE BEDSIDE. WILL CONTINUE TO MONITOR.
--- NOTE | 2018-12-29 07:31 | NUR ---
PT BEING EVALUATED BY ER AT THIS TIME.
--- NOTE | 2018-12-29 07:46 | NUR ---
PT BEING TAUGHT HOW TO USE CRUTCHES BY EMT. PT ABLE TO WALK WITH CRUTCHES. NO C/O PAIN.
--- NOTE | 2018-12-29 07:49 | NUR ---
KNEE IMMOBILIZER WAS APPLIED TO PATIENTS LEFT KNEE WITHOUT ANY ISSUES AND PATIENT DEMONSTRATED PROPER USE OF CRUTCHES.
[2018-12-29 07:53] VITALS: BP 115/54
--- NOTE | 2018-12-29 07:54 | NUR ---
Patient discharged with v/s stable. Written and verbal after care instructions given and explained. Patient alert, oriented and verbalized understanding of instructions. Ambulatory WITH CRUTCHES. All questions addressed prior to discharge. ID band removed. Patient advised to follow up with PMD. Rx of NAPROXEN 500 MG given. Patient educated on indication of medication including possible reaction and side effects. Opportunity to ask questions provided and answered.
== END 2018-12-29 07:54 | disposition home or self-care (01) ==
LOC: MED 06:16
DX: S89.92XA Unspecified injury of left lower leg, initial encounter (principal); J45.909 Unspecified asthma, uncomplicated; Z79.899 Other long term (current) drug therapy; X58.XXXA Exposure to other specified factors, initial encounter; Y93.89 Activity, other specified; Y92.89 Other specified places as the place of occurrence of the external cause; Y99.8 Other external cause status
CPT/HCPCS: 29505; 73562; 99283

== ENCOUNTER 2019-01-13 12:27 | Emergency (ER) | payer OTHER ==
[~2019-01-13] VITALS: Ht 160 cm; Wt 85.3 kg
[2019-01-13 12:37] VITALS: BP 111/58
--- NOTE | 2019-01-13 12:49 | NUR ---
23/F BIB SELF C/O N/V & INTERMITTENT EPIGASTRIC PAIN RADIATING TO BILAT FLANKS 10/ X1 DAY . PT ALSO REPORTS CONSTIPATION. DENIES DYSURIA, FREQUENCY, FEVER. HX: GORHAMS PEÑA SYNDROME, LYMPHANGIOMA, BIPOLAR . PATIENT POSITIONED FOR COMFORT; HOB ELEVATED; BEDRAILS UP X1; BED DOWN. ER MD MADE AWARE OF PT STATUS.
--- NOTE | 2019-01-13 13:04 | NUR ---
LAB AT BEDSIDE.
[2019-01-13 13:13] LABS: BASOPHILS % (AUTO) 0.4 % (0.0-2.0); EOSINOPHILS # (AUTO) 0.1 K/uL (0-0.4); EOSINOPHILS % (AUTO) 1.3 % (0.0-4.0); HEMATOCRIT 40.9 % (36-48); HEMOGLOBIN 13.6 g/dL (12.0-16.0); LYMPHOCYTES % (AUTO) 9.9 % (20.5-51.1); MEAN CORPUSCULAR HEMOGLOBIN 30 pg (27-31); MEAN CORPUSCULAR HGB CONC 33 g/dL (33-37); MEAN CORPUSCULAR VOLUME 89.7 fL (80-94); MONOCYTES # (AUTO) 0.7 K/uL (0.8-1.0); MONOCYTES % (AUTO) 7.3 % (1.7-9.3); NEUTROPHILS # (AUTO) 7.9 K/uL (1.8-7.7); NEUTROPHILS % (AUTO) 81.1 % (42.2-75.2); PLATELET COUNT (AUTO) 429 K/uL (140-450); RED BLOOD CELL COUNT(AUTO) 4.56 MIL/uL (4.20-5.40); WHITE BLOOD COUNT (AUTO) 9.8 K/uL (4.8-10.8)
[2019-01-13 13:26] LABS: ANION GAP 15.8 (8-16); POTASSIUM 3.8 mmol/L (3.5-5.1)
[2019-01-13 13:27] LABS: ALBUMIN 3.8 g/dL (3.4-5.0); CREATININE 0.7 mg/dL (0.6-1.3); TOTAL BILIRUBIN 0.7 mg/dL (0.0-1.0)
[2019-01-13 13:33] LABS: APPEARANCE,URINE BLOODY (CLEAR); BILIRUBIN,URINE 1+ (NEGATIVE); BLOOD, URINE 3+ (NEGATIVE); COLOR,URINE RED (YELLOW); LEUKOCYTE ESTERASE ,URINE TRACE (NEGATIVE); NITRITE, URINE NEGATIVE (NEGATIVE); PH,URINE 6.5 (5.0-9.0); UGLUCOSE NEGATIVE (NEGATIVE)
[2019-01-13 13:36] LABS: RBC,URINE 80-100 /HPF (0-5); WBC,URINE 16-25 (MOD) /HPF (0-5)
[2019-01-13] MEDS ORDERED: FAMOTIDINE 20 MG TAB PO ONE (15:00)
[2019-01-13] MEDS ORDERED: LIDOCAINE VISCOUS 2% 20 ML UDC PO ONE (15:00)
[2019-01-13] MEDS ORDERED: ALUMINUM HYD/MAG/SIMETHICONE 30 ML UDC PO ONE (15:00)
[2019-01-13 15:52] VITALS: BP 119/61
--- NOTE | 2019-01-13 15:52 | NUR ---
Patient discharged with v/s stable. Written and verbal after care instructions given and explained. Patient alert, oriented and verbalized understanding of instructions. Ambulatory with steady gait. All questions addressed prior to discharge. ID band removed. Patient advised to follow up with PMD. Rx of MAALOX & PEPPCID given. Patient educated on indication of medication including possible reaction and side effects. Opportunity to ask questions provided and answered.
== END 2019-01-13 15:52 | disposition home or self-care (01) ==
LOC: MED 12:27
DX: R10.13 Epigastric pain (principal); R11.2 Nausea with vomiting, unspecified; J45.909 Unspecified asthma, uncomplicated; Z79.51 Long term (current) use of inhaled steroids; Z79.899 Other long term (current) drug therapy; Z79.2 Long term (current) use of antibiotics; Z79.891 Long term (current) use of opiate analgesic
CPT/HCPCS: 36415; 80053; 81001; 81025; 83690; 85025; 99283; 99284

== ENCOUNTER 2019-02-22 23:03 | Emergency (ER) | payer OTHER ==
[~2019-02-22] VITALS: Ht 160 cm; Wt 86.2 kg
[2019-02-22 23:05] VITALS: BP 122/76
--- NOTE | 2019-02-22 23:08 | NUR ---
TO LOBBY A/W BED AMBULATORY
--- NOTE | 2019-02-22 23:50 | NUR ---
PT AMBULATED TO ER BED 06
--- NOTE | 2019-02-23 00:10 | NUR ---
23 Y/O FEMALE PRESENTS TO ED, C/O CAT SCRATCH ON FACE. PT STATES HER PET CAT BEING AGITATED AND SCRATCHING HER FACE. WOUND ON LEFT JAW NOTED. MILD BLEEDING BUT CONTROLLED. PT STATES PAIN IS 7/10. NO MEDICATION TAKEN PRIOR TO COMING TO ED. PET CAT IS VACCINATED PER PT. PT VSS. ERMD AWARE. WILL CONTINUE TO MONITOR.
--- NOTE | 2019-02-23 00:25 | NUR ---
Dr. Louise examining patient.
[2019-02-23] MEDS ORDERED: NACL 0.9% 1,000 ML IV ONE ×2 (00:27)
--- NOTE | 2019-02-23 00:47 | NUR ---
PT MOVED TO BED 3
[2019-02-23 00:55] LABS: BASOPHILS % (AUTO) 0.3 % (0.0-2.0); EOSINOPHILS # (AUTO) 0.1 K/uL (0-0.4); EOSINOPHILS % (AUTO) 0.9 % (0.0-4.0); HEMATOCRIT 39.8 % (36-48); HEMOGLOBIN 13.3 g/dL (12.0-16.0); LYMPHOCYTES # (AUTO) 2.5 K/uL (2.5-16.5); LYMPHOCYTES % (AUTO) 18.6 % (20.5-51.1); MEAN CORPUSCULAR HEMOGLOBIN 30 pg (27-31); MEAN CORPUSCULAR HGB CONC 33 g/dL (33-37); MEAN CORPUSCULAR VOLUME 90.3 fL (80-94); MONOCYTES # (AUTO) 1.2 K/uL (0.8-1.0); MONOCYTES % (AUTO) 8.7 % (1.7-9.3); NEUTROPHILS # (AUTO) 9.6 K/uL (1.8-7.7); NEUTROPHILS % (AUTO) 71.5 % (42.2-75.2); PLATELET COUNT (AUTO) 398 K/uL (140-450); RED BLOOD CELL COUNT(AUTO) 4.41 MIL/uL (4.20-5.40); RED CELL DISTRIBUTION WIDTH 14.2 % (11.6-13.7); WHITE BLOOD COUNT (AUTO) 13.4 K/uL (4.8-10.8)
[2019-02-23 01:04] LABS: CARBON DIOXIDE 23.8 mmol/L (21-32); CREATININE 0.7 mg/dL (0.6-1.3); POTASSIUM 3.8 mmol/L (3.5-5.1)
[2019-02-23 01:09] LABS: ALBUMIN 4.1 g/dL (3.4-5.0); TOTAL BILIRUBIN 0.5 mg/dL (0.0-1.0)
[2019-02-23 02:30] LABS: APPEARANCE,URINE SL CLOUDY (CLEAR); BILIRUBIN,URINE 1+ (NEGATIVE); BLOOD, URINE NEGATIVE (NEGATIVE); COLOR,URINE YELLOW (YELLOW); LEUKOCYTE ESTERASE ,URINE NEGATIVE (NEGATIVE); NITRITE, URINE NEGATIVE (NEGATIVE); UGLUCOSE NEGATIVE (NEGATIVE)
[2019-02-23] MEDS ORDERED: CLINDAMYCIN 600 MG in DEXTROSE 5% 50 ML IV ONE (02:30)
[2019-02-23] MEDS ORDERED: CLINDAMYCIN 600 MG/4 ML VIAL ONE (02:30)
[2019-02-23] MEDS ORDERED: DEXTROSE 5% 50 ML IV ONE (02:31)
[2019-02-23] MEDS ORDERED: KETOROLAC 30 MG/ML VIAL IVP ONE (03:00)
[2019-02-23 03:11] VITALS: BP 113/75
--- NOTE | 2019-02-23 03:11 | NUR ---
PT DISCHARGED WITH PAPERWORK. EDUCATED PT REGARDING MEDICATIONS AND S/E. EDUCATED PT REGARDING D/C DIAGNOSIS AND INSTRUCTIONS. TOLD PT TO FOLLOW UP WITH PCP AND WHEN TO RETURN TO ED. PT STABLE CONDITION. ALL QUESTIONS ANSWERED.
== END 2019-02-23 03:11 | disposition home or self-care (01) ==
LOC: MED 23:03
DX: S01.81XA Laceration without foreign body of other part of head, initial encounter (principal); J45.909 Unspecified asthma, uncomplicated; Z79.2 Long term (current) use of antibiotics; Z79.891 Long term (current) use of opiate analgesic; Z79.899 Other long term (current) drug therapy; Z79.51 Long term (current) use of inhaled steroids; W55.03XA Scratched by cat, initial encounter; Y93.89 Activity, other specified; Y92.89 Other specified places as the place of occurrence of the external cause; Y99.8 Other external cause status
CPT/HCPCS: 36415; 71045; 80053; 81003; 83605; 85025; 85610; 87040; 87086; 96365; 96375; 99284; J1885; J3490; J7060; Q0092

== ENCOUNTER 2019-03-01 11:58 | Inpatient (IN) | payer OTHER ==
[~2019-03-01] VITALS: Ht 170.2 cm; Wt 86.2 kg
[2019-03-01 12:09] VITALS: BP 125/59
--- NOTE | 2019-03-01 12:09 | NUR ---
Patient ambulated to bed 11. RN evaluating patient at bedside.
--- NOTE | 2019-03-01 12:11 | NUR ---
23 Y/O F C/C OF FEVER AND COUGH X1 DAY. PER PT PAIN 10/ ONLY WHEN SHE COUGHS. PT NKA. MEDICAL HX OF LYMPHATIC PROBLEMS, GORHAMS DISEASE, BIPOLAR. PER PT TAKES MEDICATION FOR ANXIETY AND OTHER MEDS BUT DOES NOT REMEMBER AT THIS POINT. PT NAUSEA. DENIES V/D. SIDE RAIL X1. FAMILY AT BEDSIDE.
--- NOTE | 2019-03-01 12:24 | NUR ---
Dr. Rizzo is evaluating the patient at bedside.
[2019-03-01] MEDS ORDERED: NACL 0.9% 1,000 ML IV SCH ×2 (12:33→16:47)
[2019-03-01] MEDS ORDERED: MORPHINE SULFATE 4 MG/ML SYR IVP ONE ×2 (12:35→13:50)
[2019-03-01] MEDS ORDERED: cefTRIAXone 1,000 MG in DEXT 5% MINI-BAG PLUS 50 ML IV ONE (12:35)
[2019-03-01] MEDS ORDERED: DEXAMETHASONE 10 MG/ML VIAL IVP ONE (12:35)
[2019-03-01] MEDS ORDERED: diphenhydrAMINE 50 MG/ML VIAL IVP ONE (12:35)
[2019-03-01] MEDS ORDERED: FAMOTIDINE 20 MG/2 ML VIAL IVP ONE (12:35)
[2019-03-01] MEDS ORDERED: AZITHROMYCIN 500 MG in DEXTROSE 5% 250 ML IV ONE (12:35)
[2019-03-01] MEDS ORDERED: ALBUTEROL SULFATE/IPRATROPIU 3 ML SOL IH ONE (12:35)
--- NOTE | 2019-03-01 12:42 | NUR ---
appliance repair technician at bedside.
--- NOTE | 2019-03-01 12:52 | NUR ---
Breathing treatment administered by respiratory therapist at bedside.
[2019-03-01] MEDS ORDERED: cefTRIAXone 1,000 MG VIAL ONE (12:54)
[2019-03-01] MEDS ORDERED: AZITHROMYCIN 500 MG INJ VIAL IV ONE ×3 (12:54→22:29)
--- NOTE | 2019-03-01 13:09 | NUR ---
REPORT GIVEN TO HARJINDER
--- NOTE | 2019-03-01 13:40 | NUR ---
PATIENT COMPLAINS OF 12/18 PAIN IN ABDOMEN, DR ROD NOTIFIED. Addendum: 03/01/19 at 1410 by RenRen Headhunting Amendment undone in EDM - 03/01/19 at 1411 by AndrocialJ GUARDING RIGHT SIDE, PATIENT STATES SHE IS IN SO MUCH PAIN. Addendum: 03/01/19 at 1411 by RenRen Headhunting GUARDING RIGHT SIDE, PATIENT STATES SHE IS IN SO MUCH PAIN.
--- NOTE | 2019-03-01 13:43 | NUR ---
DR ROD AT BEDSIDE
[2019-03-01 13:48] LABS: HEMATOCRIT 37.7 % (36-48); HEMOGLOBIN 12.7 g/dL (12.0-16.0); MEAN CORPUSCULAR HEMOGLOBIN 30 pg (27-31); MEAN CORPUSCULAR HGB CONC 34 g/dL (33-37); MEAN CORPUSCULAR VOLUME 89.6 fL (80-94); PLATELET COUNT (AUTO) 350 K/uL (140-450); RED BLOOD CELL COUNT(AUTO) 4.21 MIL/uL (4.20-5.40); RED CELL DISTRIBUTION WIDTH 14.4 % (11.6-13.7)
[2019-03-01 13:50] LABS: APPEARANCE,URINE CLEAR (CLEAR); BILIRUBIN,URINE NEGATIVE (NEGATIVE); BLOOD, URINE TRACE-L (NEGATIVE); COLOR,URINE YELLOW (YELLOW); LEUKOCYTE ESTERASE ,URINE NEGATIVE (NEGATIVE); NITRITE, URINE NEGATIVE (NEGATIVE); UGLUCOSE NEGATIVE (NEGATIVE); WHITE BLOOD COUNT (AUTO) 26.7 K/uL (4.8-10.8)
[2019-03-01] MEDS ORDERED: ONDANSETRON 4 MG/2 ML VIAL IVP ONE (13:50)
[2019-03-01] MEDS ORDERED: KETOROLAC 30 MG/ML VIAL IVP ONE (13:50)
[2019-03-01 13:58] LABS: BASOPHILS % (MANUAL) 0 % (0-2); EOSINOPHILS % (MANUAL) 0 % (0-4); LYMPHOCYTES % (MANUAL) 8 % (20-46); MONOCYTES % (MANUAL) 2 % (5-12)
[2019-03-01 13:59] LABS: BARBITURATE, URINE NEG. ng/ml (NEG <=200); BENZODIAZEPINE, URINE NEG. ng/mL (NEG <=200); CANNABINOID, URINE POS. ng/mL (NEG <=50); COCAINE, URINE NEG. ng/mL (NEG <=300); OPIATE, URINE NEG. ng/mL (NEG <=2000); PHENCYCLIDINE SCREEN,URINE NEG. ng/mL (NEG <=25); PROTHROMBIN TIME 9.9 secs (10.8-13.4)
[2019-03-01 14:00] LABS: ANION GAP 17.3 (8-16); CARBON DIOXIDE 19.7 mmol/L (21-32); CREATININE 0.7 mg/dL (0.6-1.3)
[2019-03-01 14:01] LABS: RBC,URINE 0-5 /HPF (0-5); WBC,URINE 0-5 /HPF (0-5)
--- NOTE | 2019-03-01 14:04 | NUR ---
MEDICATIONS ADMINISTERED ORDERED
[2019-03-01 14:13] LABS: ALBUMIN 3.4 g/dL (3.4-5.0); MAGNESIUM 1.9 mg/dL (1.8-2.4); TOTAL BILIRUBIN 0.8 mg/dL (0.0-1.0)
--- NOTE | 2019-03-01 14:13 | NUR ---
PATIENT STATES SHE STILL HURTS BUT PAIN MUCH MORE RELIEVED AT 8/10. PATIENT STATES SHE IS ALSO ABLE TO BREATHE EASIER.
[2019-03-01 15:00] LABS: D-DIMER > 5000 ng/ml (0-400)
--- NOTE | 2019-03-01 15:25 | NUR ---
Patient taken to CT scan via wheelchair by tech.
--- NOTE | 2019-03-01 16:12 | NUR ---
PATIENT RESTING WITH EYES CLOSED, BREATHING EVEN AND NONLABORED.
[2019-03-01] MEDS ORDERED: ALBUTEROL SULFATE/IPRATROPIU 3 ML SOL IH PRN (16:45)
[2019-03-01] MEDS ORDERED: ACETAMINOPHEN 325 MG TAB PO PRN ×2 (16:50→19:00)
[2019-03-01] MEDS ORDERED: HYDROcodone/APAP 5/325 MG 1 TAB TAB PO PRN (16:50)
[2019-03-01] MEDS ORDERED: MORPHINE SULFATE 4 MG/ML SYR IVP PRN (16:50)
[2019-03-01] MEDS ORDERED: ONDANSETRON 4 MG/2 ML VIAL IVP PRN (16:50)
[2019-03-01] MEDS ORDERED: AZITHROMYCIN 500 MG in DEXTROSE 5% 250 ML IV SCH (16:50)
[2019-03-01] MEDS ORDERED: methylPREDNISolone SS 125 MG/2 ML VIAL IVP SCH (18:00)
--- NOTE | 2019-03-01 18:20 | NUR ---
PATIENT RESTING WITH EYES CLOSED, BREATHING EVEN AND UNLABORED
[2019-03-01] MEDS ORDERED: ALBUTEROL SULFATE/IPRATROPIU 3 ML SOL IH SCH (19:00)
--- NOTE | 2019-03-01 19:00 | NUR ---
Patient will be admitted to care of DR AYALA. Admited to MED SURG0. Will go to room 106A. Belongings list completed. Report to DR AYALA.
--- NOTE | 2019-03-01 19:00 | NUR ---
RECEIVED PATIENT FROM EMERGENCY DEPARTMENT AT THIS TIME VIA WHEEL CHAIR. IV ACCESS ON LEFT AC 20 GAUGE. PATENT AND INTACT. INITIAL VITAL SIGNS DONE. INITIAL ASSESSMENT DONE. PT ORIENTED TO ROOM. BOARD UPDATED. BELONGINGS CHECKLIST SIGNED. MRSA SWAB DONE AND SENT TO LAB. BED IN LOW. SAFETY MEASURES IN PLACE. CALL LIGHT PLACED WITHIN PATIENT REACH. WILL CONTINUE TO MONITOR PATIENT.
[2019-03-01] MEDS ORDERED: busPIRone 5 MG TAB PO SCH (21:00)
[2019-03-01] MEDS ORDERED: traZODone 50 MG TAB PO SCH (21:00)
[2019-03-01] MEDS: BUDESONIDE 0.5 MG/2 ML NEBU INH SCH (21:00)
[2019-03-01] MEDS ORDERED: lamoTRIgine 25 MG TAB PO SCH (21:00)
[2019-03-01] MEDS ORDERED: BUDESONIDE 0.5 MG/2 ML NEBU INH SCH (21:00)
--- NOTE | 2019-03-01 21:05 | NUR ---
ROUNDS DONE. CALL LIGHT WITHIN REACH. WILL CONTINUE TO MONITOR PATIENT.
[2019-03-01] MEDS: AZITHROMYCIN 500 MG in DEXTROSE 5% 250 ML IV SCH (22:44)
[2019-03-01] MEDS: HYDROcodone/APAP 5/325 MG 1 TAB TAB PO PRN (22:51)
[2019-03-02] VITALS: BP 105/53
--- NOTE | 2019-03-02 | NUR ---
VITALS TAKEN AT THIS TIME. CALL LIGHT WITHIN PATIENT REACH. WILL CONTINUE TO MONITOR PATIENT.
[2019-03-02] MEDS: traZODone 50 MG TAB PO SCH ×2 (00:22→20:57)
[2019-03-02] MEDS: busPIRone 5 MG TAB PO SCH ×3 (00:22→20:57)
[2019-03-02] MEDS: lamoTRIgine 25 MG TAB PO SCH ×3 (00:22→20:57)
[2019-03-02] MEDS: methylPREDNISolone SS 125 MG/2 ML VIAL IVP SCH ×5 (00:23→23:15)
[2019-03-02] MEDS: ALBUTEROL SULFATE/IPRATROPIU 3 ML SOL IH SCH ×4 (01:00→18:42)
--- NOTE | 2019-03-02 02:05 | NUR ---
ROUNDS DONE AT THIS TIME. NO DISTRESS NOTED AT THIS TIME. WILL CONTINUE TO MONITOR PATIENT.
--- NOTE | 2019-03-02 04:05 | NUR ---
ROUNDS DONE. PATIENT RESTING COMFORTABLY. WILL CONTINUE TO MONITOR PATIENT.
--- NOTE | 2019-03-02 06:54 | NUR ---
PT IN STABLE CONDITION. CALL LIGHT WITHIN PATIENT REACH. WILL ENDORSE TO AM SHIFT NURSE FOR CONTINUITY OF CARE.
--- NOTE | 2019-03-02 07:00 | NUR ---
RECEIVED REPORT FROM NIGHT RN. PATIENT IS AWAKE AND SITTING UP IN BED, NO RESPIRATORY DISTRESS. PT IS FULL CODE, NKA. RT AT BEDSIDE FOR BREATHING TX. AAOX4, IV TO LEFT AC 20G. PT IS AMBULATORY BUT HAS A BEDSIDE COMMODE FOR URGENCY. WILL REVIEW AND CONTINUE WITH PLAN OF CARE UNDER DR PATEL.
[2019-03-02] MEDS: NACL 0.9% 1,000 ML IV SCH ×3 (07:30→20:00)
[2019-03-02] MEDS: BUDESONIDE 0.5 MG/2 ML NEBU INH SCH ×2 (07:40→18:42)
--- NOTE | 2019-03-02 08:26 | NUR ---
PATIENT HAS BEEN SCREENED AND CATEGORIZED MODERATE NUTRITION RISK. PATIENT WILL BE SEEN WITHIN 3-5 DAYS OF ADMISSION. 03/04/19 03/06/[address]
[2019-03-02 08:36] VITALS: BP 116/38
--- NOTE | 2019-03-02 09:10 | NUR ---
ADMINISTERED MORNING MEDICATION PATIENT TOLERATED WELL. PATIENT C/O COUGHING UP SMALL AMOUNT OF BROWN MUCOUS AFTER BREATHING TX, WILL INFORM DR PATEL.
--- NOTE | 2019-03-02 11:52 | NUR ---
Standards Engineer Note: Basic Screen: Yes High Risk DC Screen [place]: SUZY UMANA [place] Relationship: GRANDMOTHER Pre-Admission Living Arrangements: Lives with Other Current Home Health Name/Tel: N/A Current DME/02 Name/Tel: [facility] Current Hospice Name/Tel: N/A Current Dialysis Name/Tel: N/A Healthcare Decision Maker: Patient Advance Directive No - REFUSED Physician Orders for Life Sustaining Treatment Form No Information Taught: Advance Directive Person Taught: Patient Teaching Tools: Verbal Factors Affecting Learning: None Participation Level: Refused Evaluation: Verbalizes Understanding Needs Additional Education: No Discipline: Case Mgt/Social Svcs Tentative Discharge Plan/Destination: No Needs Identified Will require assistance post discharge: No Referred to Internet Ecommerce Specialist: No Tentative Discharge Plan Summary: Patient is a 23-year-old female admitted for asthma and mediastinal mass. Patient has PMHX of asthma , Kristi's Disease, and bipolar disorder. Patient was admitted from home. SW met with patient at bedside to verify demographics. Patient stated she lives with her grandmother/emergency contact Suzy Umana [phone]. Patient stated she has a mental health history of bipolar disorder, anxiety, depression, and ADD. Patient stated she is currently in the process of arranging mental health services. SW offered mental health resources, but patient refused. Patient reported no history of substance abuse. SW provided education to patient regarding advanced directive, but patient refused. Patient's tentative discharge plan is to return home. No further needs identified. Signature: PACO Hendricks Date: Mar 02, 2019 Time: 11:52
[2019-03-02] MEDS: MORPHINE SULFATE 4 MG/ML SYR IVP PRN ×2 (12:25→20:49)
--- NOTE | 2019-03-02 12:29 | NUR ---
ADMINISTERED MORPHINE IVP FOR PAIN 10/10 TO CHEST. WILL RE ASSESS PAIN LEVEL
--- NOTE | 2019-03-02 14:00 | NUR ---
OBTAINED SPUTUM CULTURE AND SENT TO LAB. PER DR PATEL, INFUSE NS AT 80ML/HR.
[2019-03-02] MEDS: HYDROcodone/APAP 5/325 MG 1 TAB TAB PO PRN (15:47)
--- NOTE | 2019-03-02 15:47 | NUR ---
ADMINISTERED NORCO FOR PAIN. PATIENT IS SITTING UP IN BED. VITAL SIGNS WNL PRIOR TO ADMINISTRATION. WILL RE ASSESS
[2019-03-02 16:36] VITALS: BP 112/46
[2019-03-02] MEDS: IBUPROFEN 600 MG TAB PO SCH (18:00)
[2019-03-02] MEDS: AZITHROMYCIN 500 MG in DEXTROSE 5% 250 ML IV SCH (18:00)
--- NOTE | 2019-03-02 18:07 | NUR ---
ADMINISTERED NEXT DOSE AZITHROMYCIN. PATIENT IS SITTING UP IN BED EATING DINNER.
--- NOTE | 2019-03-02 19:15 | NUR ---
RECEIVED PT AWAKE SITTING ON BED PRESENTLY GETTING BREATHING TX, NO DISTRESS NOTED, IV OFF AT THIS TIME, CHARGE NURSE WILL START A NEW IV LINE, PLAN OF CARE DISCUSSED, SAFETY MEASURES IN PLACE, CALL LIGHT WITHIN REACH.
--- NOTE | 2019-03-02 20:50 | NUR ---
PT COMPLAINING OF CHEST PRESSURE, MEDICATED PRN WITH MORPHINE IVP, DUE MEDS ADMINISTERED WITH EDUCATION PROVIDED, MONITORED CLOSELY.
[2019-03-03] VITALS: BP 103/48
--- NOTE | 2019-03-03 | NUR ---
PT SLEEPING, EASILY AROUSABLE, VITAL SIGNS TAKEN, BP ON THE LOW SIDE BUT STABLE, DENIES ANY PAIN, NO SOB NOTED, OCCASIONAL COUGH NOTED, IVF INFUSING WELL, CONTINUE TO MONITOR CLOSELY.
[2019-03-03] MEDS: ALBUTEROL SULFATE/IPRATROPIU 3 ML SOL IH SCH ×4 (01:00→19:25)
--- NOTE | 2019-03-03 01:09 | NUR ---
PATIENT REFUSED HHNTX. SHE WANTS TO SLEEP. NO SOB NOTED
[2019-03-03] MEDS: MORPHINE SULFATE 4 MG/ML SYR IVP PRN ×2 (02:35→11:50)
--- NOTE | 2019-03-03 02:35 | NUR ---
PT COMPLAINING OF CHEST PRESSURE, MEDICATED PRN, REQUESTING FOR BREATHING TX, GARCÍA RT PAGED, WILL COME AND GIVE HER A BREATHING, MONITORED CLOSELY..
[2019-03-03] MEDS: ALBUTEROL SULFATE/IPRATROPIU 3 ML SOL IH PRN (02:50)
[2019-03-03] MEDS: methylPREDNISolone SS 125 MG/2 ML VIAL IVP SCH ×3 (05:18→17:54)
[2019-03-03] MEDS: HYDROcodone/APAP 5/325 MG 1 TAB TAB PO PRN (05:22)
--- NOTE | 2019-03-03 05:25 | NUR ---
PT AWAKE, COMPLAINING OF CHEST PRESSURE, MORPHINE NOT DUE YET, MEDICATED WITH NORCO PO, NO SOB NOTED, OCCASIONAL COUGH NOTED, DUE SOLUMEDROL IVP ADMINISTERED, MONITORED CLOSELY.
--- NOTE | 2019-03-03 07:20 | NUR ---
PT AWAKE, NO SIGNS OF DISTRESS, REPORT GIVEN TO JASON LABOY FOR CONTINUITY OF CARE.
--- NOTE | 2019-03-03 07:25 | NUR ---
RECEIVED REPORT FROM NIGHT RN CHRISTY. PATIENT IS FULL CODE, NKA. CURRENTLY SLEEPING IN BED, EASILY AROUSABLE. PATIENT IS ON ROOM AIR. IV TO RIGHT FA 22G WITH NS INFUSING AT 100ML/HR. NO SIGNS OF RESPIRATORY DISTRESS. PATIENT IS AAOX4, AMBULATORY, USING A BEDSIDE COMMODE. WILL REVIEW AND CONTINUE WITH PLAN OF CARE FOR THE DAY.
[2019-03-03 07:30] LABS: HEMATOCRIT 36.2 % (36-48); HEMOGLOBIN 11.8 g/dL (12.0-16.0); MEAN CORPUSCULAR HEMOGLOBIN 30 pg (27-31); MEAN CORPUSCULAR HGB CONC 33 g/dL (33-37); MEAN CORPUSCULAR VOLUME 90.9 fL (80-94); PLATELET COUNT (AUTO) 389 K/uL (140-450); RED BLOOD CELL COUNT(AUTO) 3.99 MIL/uL (4.20-5.40); RED CELL DISTRIBUTION WIDTH 14.5 % (11.6-13.7)
[2019-03-03 07:32] LABS: CREATININE 0.7 mg/dL (0.6-1.3)
[2019-03-03] MEDS: BUDESONIDE 0.5 MG/2 ML NEBU INH SCH ×2 (07:40→19:25)
[2019-03-03 07:46] LABS: MAGNESIUM 2.4 mg/dL (1.8-2.4); PHOSPHORUS 2.2 mg/dL (2.5-4.9)
[2019-03-03 08:00] VITALS: BP 103/48
--- NOTE | 2019-03-03 08:35 | NUR ---
ADMINISTERED MORNING MEDICATION. PATIENT TOLERATED WELL. BEGAN NEXT INFUSION OF ROCEPHIN IVPB
[2019-03-03] MEDS: IBUPROFEN 600 MG TAB PO SCH ×3 (08:36→17:53)
[2019-03-03] MEDS: lamoTRIgine 25 MG TAB PO SCH ×2 (08:37→21:33)
[2019-03-03] MEDS: busPIRone 5 MG TAB PO SCH ×2 (08:37→21:33)
[2019-03-03] MEDS: NACL 0.9% 1,000 ML IV SCH ×3 (08:41→23:50)
[2019-03-03 08:53] LABS: WHITE BLOOD COUNT (AUTO) 25.9 K/uL (4.8-10.8)
[2019-03-03 08:55] LABS: LYMPHOCYTES % (MANUAL) 2 % (20-46); MONOCYTES % (MANUAL) 3 % (5-12)
--- NOTE | 2019-03-03 10:00 | NUR ---
PATIENT AMBULATED TO SHOWER IN THE HALLWAY AND TOOK SHOWER. IV SITE WRAPPED. PATIENT IS NOW BACK IN BED AND RE CONNECTED TO IV.
--- NOTE | 2019-03-03 11:51 | NUR ---
ADMINISTERED PM MEDICATION AND PAIN MEDICATION FOR PAIN 11/18. PATIENT IS SITING UP IN BED ON CELLPHONE, NO OTHER COMPLAINTS AT THIS TIME.
--- NOTE | 2019-03-03 14:50 | NUR ---
PATIENT C/O UTI S/S. INFORMED DR PATEL AND DR ULLOA IN AN ORDER FOR URINE CULTURE. LEFT URINE CUP AT BEDSIDE AND INSTRUCTED PATIENT TO VOID INTO CUP NEXT TIME SHE HAS THE URGE AND TO NOTIFY STAFF. PATIENT VERBALIZED UNDERSTANDING
[2019-03-03 16:00] VITALS: BP 118/49
--- NOTE | 2019-03-03 17:54 | NUR ---
ADMINISTERED EVENING MEDICATION. PATIENT IS SITTING UP IN BED, FRIEND AT BEDSIDE. PATIENT HAS NOT VOIDED INTO URINE SPECIMEN CUP. RE-INSTRUCTED PATIENT TO MAKE SURE SHE VOIDS IN CUP. PATIENT VERBALIZED UNDERSTANDING.
[2019-03-03] MEDS: ONDANSETRON 4 MG/2 ML VIAL IVP PRN (18:49)
--- NOTE | 2019-03-03 18:49 | NUR ---
ADMINISTERED ZOFRAN FOR NAUSEA. OBTAINED URINE SPECIMEN FOR LAB FOR UA.
[2019-03-03] MEDS: AZITHROMYCIN 500 MG in DEXTROSE 5% 250 ML IV SCH (19:00)
--- NOTE | 2019-03-03 19:10 | NUR ---
RECD. RESTING IN BED, AWAKE, A/OX4. RESPIRATION EVEN AND UNLABORED. IV OF NS AT 80 ML/HR INFUSING, RIGHT FOREARM G22. NO NAUSEA NOTED. USES BSC. PLAN OF CARE FOR THE SHIFT DISCUSSED. VERBALIZED UNDERSTANDING. DENIES PAIN 0/10.
--- NOTE | 2019-03-03 19:45 | NUR ---
RECEIVED PATIENT ON ROOM AIR, PULSE OX SAT 95%. SCHEDULED BREATHING TREATMENTS ADMINISTERED. TOLERATED TXs WELL WITHOUT ADVERSE SIDE EFFECTS. NO ACUTE RESPIRATORY DISTRESS NOTED AT THIS TIME. WILL CONTINUE TO MONITOR.
--- NOTE | 2019-03-03 20:00 | NUR ---
Patient's Plan of Care was discussed and reviewed with [employer]: [employer]
--- NOTE | 2019-03-03 20:30 | NUR ---
USED THE BEDSIDE COMMODE. ABLE TO TRANSFER SELF FROM BEDSIDE COMMODE TO BED WITHOUT DIFFICULTY.
[2019-03-03 20:43] LABS: APPEARANCE,URINE CLEAR (CLEAR); BILIRUBIN,URINE NEGATIVE (NEGATIVE); BLOOD, URINE NEGATIVE (NEGATIVE); COLOR,URINE YELLOW (YELLOW); LEUKOCYTE ESTERASE ,URINE NEGATIVE (NEGATIVE); NITRITE, URINE NEGATIVE (NEGATIVE); UGLUCOSE NEGATIVE (NEGATIVE)
[2019-03-03] MEDS: traZODone 50 MG TAB PO SCH (21:33)
[2019-03-04] VITALS: BP 95/44
--- NOTE | 2019-03-04 | NUR ---
SLEEPING COMFORTABLY IN BED. NO RESPIRATORY DISTRESS NOTED.
[2019-03-04] MEDS: methylPREDNISolone SS 125 MG/2 ML VIAL IVP SCH ×3 (00:24→12:38)
--- NOTE | 2019-03-04 00:24 | NUR ---
MEDICATED WITH SOLU-MEDROL PER MD ORDER BY JASON MONSALVE. TOLERATED WELL.
[2019-03-04] MEDS: ALBUTEROL SULFATE/IPRATROPIU 3 ML SOL IH SCH ×4 (01:00→19:40)
--- NOTE | 2019-03-04 05:00 | NUR ---
AWAKE IN BED, WHEN ASKED HOW SHE IS, STATED SHE IS NOT FEELING OK BECAUSE EVERY TIME SHE VOIDS, SHE FEELS PAIN AND IT NEEDS FOR HER TO PUSHED HARD TO BE ABLE TO VOID. FOLLOW WITH UA TEST RESULT, BRANDEN OF LAB SAID IT IS NEGATIVE BUT WE STILL HAVE TO WAIT FOR THE CULTURE.
--- NOTE | 2019-03-04 05:15 | NUR ---
CRANBERRY JUICES GIVEN AND ENCOURAGED TO DRINK MORE WATER.
[2019-03-04 06:41] LABS: BASOPHILS # (AUTO) 0.1 K/uL (0.00-0.22); BASOPHILS % (AUTO) 0.5 % (0.0-2.0); HEMATOCRIT 36.2 % (36-48); HEMOGLOBIN 11.8 g/dL (12.0-16.0); LYMPHOCYTES # (AUTO) 0.9 K/uL (2.5-16.5); LYMPHOCYTES % (AUTO) 4.7 % (20.5-51.1); MEAN CORPUSCULAR HEMOGLOBIN 30 pg (27-31); MEAN CORPUSCULAR HGB CONC 33 g/dL (33-37); MEAN CORPUSCULAR VOLUME 90.9 fL (80-94); MONOCYTES # (AUTO) 0.6 K/uL (0.8-1.0); MONOCYTES % (AUTO) 3.2 % (1.7-9.3); NEUTROPHILS # (AUTO) 17.3 K/uL (1.8-7.7); NEUTROPHILS % (AUTO) 91.6 % (42.2-75.2); PLATELET COUNT (AUTO) 368 K/uL (140-450); RED BLOOD CELL COUNT(AUTO) 3.99 MIL/uL (4.20-5.40); RED CELL DISTRIBUTION WIDTH 14.9 % (11.6-13.7); WHITE BLOOD COUNT (AUTO) 18.9 K/uL (4.8-10.8)
[2019-03-04 06:46] LABS: ANION GAP 13.8 (8-16); CARBON DIOXIDE 19.5 mmol/L (21-32); CREATININE 0.6 mg/dL (0.6-1.3); POTASSIUM 4.3 mmol/L (3.5-5.1)
[2019-03-04 06:55] LABS: MAGNESIUM 2.5 mg/dL (1.8-2.4); PHOSPHORUS 2.7 mg/dL (2.5-4.9)
--- NOTE | 2019-03-04 07:15 | NUR ---
ENDORSED TO JASON SANDERS FOR CONTINUITY OF CARE.
--- NOTE | 2019-03-04 07:16 | NUR ---
RECEIVED REPORT FROM GRAINING MACHINE OPERATOR NURSE. PATIENT LYING DOWN IN BED SLEEPING, AROUSABLE BY VOICE. NO DISTRESS NOTED. DENIES ANY PAIN. AAXO4, CALM, COOPERATIVE, SKIN COLOR APPROPRIATE TO ETHNICITY, WARM TO TOUCH. SKIN INTACT. IV SITE INTACT, PATENT, AND INFUSING IVF PER MD ORDERS. RESPIRATIONS EVEN, UNLABORED, ON ROOM AIR. REVIEWED PLAN OF CARE WITH PATIENT. PATIENT VERBALIZED UNDERSTANDING. SAFETY MEASURES IN PLACE, CALL LIGHT WITHIN REACH. WILL CONTINUE TO MONITOR.
[2019-03-04] MEDS: BUDESONIDE 0.5 MG/2 ML NEBU INH SCH ×2 (07:55→19:42)
[2019-03-04 08:00] VITALS: BP 129/61
[2019-03-04 09:06] LABS: LACTATE DEHYDROGENASE 127 IU/L (119-226)
[2019-03-04] MEDS: lamoTRIgine 25 MG TAB PO SCH ×2 (09:13→20:40)
[2019-03-04] MEDS: IBUPROFEN 600 MG TAB PO SCH ×3 (09:13→17:01)
[2019-03-04] MEDS: busPIRone 5 MG TAB PO SCH ×2 (09:13→20:40)
[2019-03-04] MEDS: NACL 0.9% 1,000 ML IV SCH ×2 (09:14→09:30)
--- NOTE | 2019-03-04 09:22 | NUR ---
PATIENT SITTING DOWN IN BED ON HER PHONE. NO DISTRESS NOTED. SCHEDULED MEDICATIONS DUE GIVEN. WILL CONTINUE TO MONITOR.
[2019-03-04] MEDS: HYDROcodone/APAP 5/325 MG 1 TAB TAB PO PRN (09:48)
--- NOTE | 2019-03-04 12:42 | NUR ---
PATIENT SITTING IN BED WATCHING MOVIE ON HER PHONE. NO DISTRESS NOTED. DENIES ANY PAIN. SCHEDULED MEDICATIONS DUE GIVEN. WILL CONTINUE TO MONITOR.
[2019-03-04] MEDS ORDERED: HYDROcodone/APAP 5/325 MG 1 TAB TAB PO PRN (13:05)
[2019-03-04] MEDS ORDERED: ALUMINUM HYD/MAG/SIMETHICONE 30 ML UDC PO PRN (13:05)
[2019-03-04] MEDS ORDERED: BISACODYL 10 MG SUPP RC SCH (13:10)
[2019-03-04] MEDS ORDERED: FAMOTIDINE 20 MG/2 ML VIAL IV SCH (13:48)
[2019-03-04] MEDS: DOCUSATE SODIUM 100 MG GELCAP PO SCH ×2 (15:41→20:40)
--- NOTE | 2019-03-04 15:46 | NUR ---
PATIENT SITTING DOWN IN BED, FAMILY AT BEDSIDE. SCHEDULED MEDICATIONS DUE GIVEN. WILL CONTINUE TO MONITOR.
[2019-03-04 16:00] VITALS: BP 122/70
--- NOTE | 2019-03-04 17:03 | NUR ---
PATIENT SITTING DOWN IN BED TALKING TO FAMILY MEMBERS AT BEDSIDE. SCHEDULED MEDICATIONS DUE GIVEN .WILL CONTINUE TO MONITOR.
[2019-03-04] MEDS: AZITHROMYCIN 500 MG in DEXTROSE 5% 250 ML IV SCH (18:12)
--- NOTE | 2019-03-04 18:16 | NUR ---
PATIENT SITTING DOWN IN BED ON HER PHONE. NO DISTRESS NOTED. DENIES ANY PAIN. SCHEDULED MEDICATIONS DUE GIVEN. WILL CONTINUE TO MONITOR.
--- NOTE | 2019-03-04 19:00 | NUR ---
RECEIVED BEDSIDE REPORT FROM DAY SHIFT NURSE. PATIENT IS AWAKE, ALERT, AND COOPERATIVE. RESPIRATION EVEN UNLABORED ON ROOM AIR. NO DISTRESS NOTED. SKIN IS WARM AND DRY. IV PATENT AND INTACT. PLAN OF CARE WAS DISCUSSED. ALL SAFETY MEASURES IN PLACE. BED IS AT LOW POSITION. CALL LIGHT WITHIN REACH AND VERBALIZE ITS USE. WILL CONTINUE TO MONITOR.
--- NOTE | 2019-03-04 19:07 | NUR ---
GAVE REPORT TO MICROWAVE RADIO TECHNICIAN NURSE FOR CONTINUITY OF CARE. PATIENT IN STABLE CONDITION.
--- NOTE | 2019-03-04 20:00 | NUR ---
INITIAL ASSESSMENT DONE. VITALS WERE TAKEN. PATIENT IN STABLE CONDITION. NO DISTRESS NOTED. WILL CONTINUE TO MONITOR.
[2019-03-04] MEDS: traZODone 50 MG TAB PO SCH (20:40)
[2019-03-04] MEDS: FAMOTIDINE 20 MG/2 ML VIAL IV SCH (20:41)
[2019-03-04] MEDS: methylPREDNISolone SS 40 MG/ML VIAL IVP SCH (20:41)
[2019-03-04] MEDS ORDERED: SENNA 8.6 MG TAB PO SCH (21:00)
--- NOTE | 2019-03-04 21:00 | NUR ---
ALL SCHEDULED MEDS WERE GIVEN PER ORDER. NO ASE NOTED. WILL CONTINUE TO MONITOR.
--- NOTE | 2019-03-04 23:22 | NUR ---
CHECKED ON PATIENT. PATIENT SLEEPING RESPIRATION EVEN UNLABORED ON ROOM AIR. NO DISTRESS NOTED. WILL CONTINUE TO MONITOR.
[2019-03-05] VITALS: BP 126/67
--- NOTE | 2019-03-05 | NUR ---
VITALS WERE TAKEN. PATIENT IN STABLE CONDITION. NO DISTRESS NOTED. WILL CONTINUE TO MONITOR.
[2019-03-05] MEDS: ALBUTEROL SULFATE/IPRATROPIU 3 ML SOL IH SCH ×3 (01:00→13:50)
--- NOTE | 2019-03-05 02:30 | NUR ---
CHECKED PATIENT. PATIENT SLEEPING RESPIRATION EVEN UNLABORED ON ROOM AIR. NO DISTRESS NOTED. WILL CONTINUE TO MONITOR.
[2019-03-05] MEDS: NACL 0.9% 1,000 ML IV SCH (03:30)
--- NOTE | 2019-03-05 04:00 | NUR ---
CHECKED PATIENT. PATIENT SLEEPING RESPIRATION EVEN UNLABORED ON ROOM AIR. NO DISTRESS NOTED. WILL CONTINUE TO MONITOR
[2019-03-05] MEDS: ALBUTEROL SULFATE/IPRATROPIU 3 ML SOL IH PRN (05:55)
[2019-03-05 06:53] LABS: BASOPHILS % (AUTO) 0.2 % (0.0-2.0); HEMATOCRIT 35.8 % (36-48); HEMOGLOBIN 11.8 g/dL (12.0-16.0); LYMPHOCYTES # (AUTO) 1.3 K/uL (2.5-16.5); LYMPHOCYTES % (AUTO) 8.6 % (20.5-51.1); MEAN CORPUSCULAR HEMOGLOBIN 30 pg (27-31); MEAN CORPUSCULAR HGB CONC 33 g/dL (33-37); MEAN CORPUSCULAR VOLUME 90.7 fL (80-94); MONOCYTES % (AUTO) 6.5 % (1.7-9.3); NEUTROPHILS # (AUTO) 12.5 K/uL (1.8-7.7); NEUTROPHILS % (AUTO) 84.7 % (42.2-75.2); PLATELET COUNT (AUTO) 396 K/uL (140-450); RED BLOOD CELL COUNT(AUTO) 3.95 MIL/uL (4.20-5.40); RED CELL DISTRIBUTION WIDTH 14.7 % (11.6-13.7); WHITE BLOOD COUNT (AUTO) 14.8 K/uL (4.8-10.8)
[2019-03-05 07:16] LABS: ANION GAP 14.8 (8-16); CARBON DIOXIDE 20.5 mmol/L (21-32); CREATININE 0.7 mg/dL (0.6-1.3); POTASSIUM 4.3 mmol/L (3.5-5.1)
--- NOTE | 2019-03-05 07:21 | NUR ---
MADE ROUNDS PATIENT IN STABLE CONDITION WILL ENDORSE TO DAY SHIFT NURSE
[2019-03-05 07:38] LABS: MAGNESIUM 2.3 mg/dL (1.8-2.4); PHOSPHORUS 2.8 mg/dL (2.5-4.9)
--- NOTE | 2019-03-05 08:00 | NUR ---
RECEIVED REPORT FROM JASON BILLY. PATIENT ALERT AWAKE ORIENTED X4, NOT IN ANY DISTRESS NOTED. PATIENT WATCHING ON HER CP, DENIES ANY PAIN. WITH IVF ON GOING AND INFUSING WELL. NEEDS ATTENDED, WILL CONTINUE TO MONITOR.
[2019-03-05 08:38] VITALS: BP 137/82
[2019-03-05] MEDS: BUDESONIDE 0.5 MG/2 ML NEBU INH SCH (08:39)
[2019-03-05] MEDS: busPIRone 5 MG TAB PO SCH (08:52)
[2019-03-05] MEDS: lamoTRIgine 25 MG TAB PO SCH (08:52)
[2019-03-05] MEDS: methylPREDNISolone SS 40 MG/ML VIAL IVP SCH (08:52)
[2019-03-05] MEDS: IBUPROFEN 600 MG TAB PO SCH ×2 (08:52→11:27)
[2019-03-05] MEDS: DOCUSATE SODIUM 100 MG GELCAP PO SCH (08:53)
--- NOTE | 2019-03-05 09:15 | NUR ---
ALL DUE MEDICATIONS GIVEN AND TOELRATED WELL.
[2019-03-05] MEDS: FAMOTIDINE 20 MG/2 ML VIAL IV SCH (09:34)
[2019-03-05] MEDS: MORPHINE SULFATE 4 MG/ML SYR IVP PRN (09:34)
--- NOTE | 2019-03-05 09:34 | NUR ---
C/O CHEST PAIN, 09/17, MEDICATED WITH MORPHINE ORDERED. WILL CONTINUE TO MONITOR.
[2019-03-05] MEDS ORDERED: KETOROLAC 30 MG/ML VIAL IVP PRN ×2 (11:10→18:00)
--- NOTE | 2019-03-05 11:10 | NUR ---
PATIENT C/O STOMACH PAIN, YELLING, WANTS PAIN MEDICATION IV, EXPLAINED TO HER THAT THE MEDICATION IS TOO SOON, OFFERED MAALOX PATIENT REFUSED. PAGED DR. PATEL AND ORDERED TORADOL IV.
--- NOTE | 2019-03-05 11:25 | NUR ---
MEDICATED WITH TORADOL IV, PATIENT KEEP SAYING THAT IT WON'T HELP HER. EXPLAINED TO HER THAT WE NEED TO WAIT FOR THE EFFECT AND WAITING FOR DR. PATEL TO SEE HER. WILL CONTINUE TO MONITOR.
[2019-03-05] MEDS: ONDANSETRON 4 MG/2 ML VIAL IVP PRN (13:24)
--- NOTE | 2019-03-05 13:42 | NUR ---
DISCHARGE PLANNIN23 Y/O FEMALE FROM HOME, WHO CAME IN DUE TO FEVER, COUGH AND SOB. PAST MEDICAL AND SURGICAL HISTORY INCLUDE ASTHMA, TRACIE-PEÑA DISEASE, LYMPHOMATOSIS DISORDER, NON SPECIFIED BIPOLAR DISEASE, CHOLECYTECTOMY AND SPLENECTOMY. INITIAL DIAGNOSIS OF ASTHMA AND MEDIASTINAL MASS. CURRENT LABS INCLUDE WBC 14.8, H/H 11.8/35.8, NA/K 139/4.3, BUN/CREA 20/0.7 AND C REACTIVE PROTEIN 1.2. UDS SHOWED POSITIVE FOR CANNABINOIDS. CURRENT MEDS INCLUDE SOLU-MEDROL, AZITHROMYCIN AND ROCEPHIN. CXR ON ADMISSION SHOWED NO ACUTE CARDIOPULMONARY DISEASE AND PERSISTENT MEDIASTINAL MASS. CHEST ANGIO CT SHOWED INTERVAL INCREASED SIZE OF EXTENSIVE CONGLOMERATE HUGO MASSES IN THE RIGHT UPPER MEDIASTINUM, BILATERAL SUPRACLAVICULAR REGIONS, ANTERIOR CHEST WALL AND RIGHT GREATER THAN LEFT AXILLARY REGIONS. NO CONSULTS AT THIS TIME. DC PLAN TO HOME ONCE STABLE. Addendum: 03/05/19 at 1555 by Christa Ziegler CM RECEIVED AN ORDER FOR FOLLOW UP REFERRAL TO [facility] OUT PATIENT. CONTACTED [facility] AT [phone], ABLE TO SPEAK TO LEMUEL IN PATIENT COORDINATOR. SHE STATED TO GO AHEAD AND FAX OVER ORDER TO [phone]. ORDER SENT TO THE PROVIDED FAX NUMBER. Addendum: 03/06/19 at 1132 by Christa Ziegler CONTACTED [facility] AT [phone], ABLE TO SPEAK TO PEPPER. SHE STATED SHE WILL TRANSFER ME TO OUT PATIENT REFERRAL, NO ANSWER. LEFT MESSAGE REGARDING ORDER FOR OP REFERRAL TO [facility]. LEFT MESSAGE TOO OF CONTACT INFO.
--- NOTE | 2019-03-05 15:00 | NUR ---
SEEN BY DR. PATEL WITH ORDER FOR D/C TODAY. CM NOTIFIED REGARDING OUTPATIENT FOLLOW UP ON [employer] AND PROPOSAL ENGINEER AND MADE AWARE.
[2019-03-05] MEDS ORDERED: DOXY100C9 PO (15:04)
[2019-03-05] MEDS ORDERED: BECL10.62 IH (15:04)
[2019-03-05] MEDS ORDERED: PRED20TA5 PO (15:04)
[2019-03-05] MEDS ORDERED: ACET-9525 PO (15:04)
[2019-03-05] MEDS ORDERED: ONDA4TAB PO (15:39)
--- NOTE | 2019-03-05 15:55 | NUR ---
D/C INSTRUCTION AND PRESCRIPTION GIVEN AND VERBALIZED UNDERSTANDING. IV REMOVED. IN STABLE CONDITION. WAITING FOR FLAT KNITTER HELPER.
--- NOTE | 2019-03-05 16:30 | NUR ---
PATIENT RETAIL SERVICE TECHNICIAN IS HERE. DC HOME IN STABLE CONDITION.
[2019-03-07 08:07] LABS: LD1 FRACTION 22 % (17-32); LD2 FRACTION 28 % (25-40); LD3 FRACTION 24 % (17-27); LD4 FRACTION 11 % (5-13); LD5 FRACTION 15 % (4-20)
--- NOTE | 2019-03-12 14:24 | NUR ---
RECEIVED A CALL FROM [facility], SHE STATED TO GO AHEAD SEND THE REFERRAL TO [phone]. REFERRAL SENT. SHE SAID SHE CALL ME BACK FOR AUTH ONCE ORDER IS RECEIVED. Addendum: 03/13/19 at 1430 by Christa Ziegler CONTACTED [facility] TO FOLLOW UP AUTH FOR OUT PATIENT REFERRAL FOR ENDO AND UNIT SECRETARY. SHE PROVIDED ME FOR ENDO, DR GUY [phone], FAX [phone] AND FOR UNIT SECRETARY DR. KADIE BLANCO [phone], FAX [phone]. [address] GUY'S OFFICE, ABLE TO SPEAK TO [employer] [facility] [employer]. SHE STATED TO GO AHEAD AND FAX REFERRAL TO [phone]. CONTA[address] KADIE BLANCO'S OFFICE, NO ANSWER. LEFT MESSAGE WITH CONTACT INFO. REFERRAL SENT TO THE FAX NUMBER PROVIDED. WILL FOLLOW UP.
== END 2019-03-05 16:30 | disposition home or self-care (01) | DRG 139 ==
LOC: MED 11:58 → MTU 16:49 → MED 18:56
PROVIDERS: ADMIT Internal Medicine Pulmonary Disease; ATTEND Internal Medicine Pulmonary Disease
DX: J18.0 Bronchopneumonia, unspecified organism (principal); J45.901 Unspecified asthma with (acute) exacerbation; F31.9 Bipolar disorder, unspecified; I89.9 Noninfective disorder of lymphatic vessels and lymph nodes, unspecified; M89.50 Osteolysis, unspecified site
CPT/HCPCS: 36415; 71045; 71275; 80048; 80053; 80305; 81001; 81003; 81025; 83605; 83625; 83735; 84100; 84484; 84550; 85025; 85379; 85610; 85651; 86140; 87040; 87070; 87081; 87086; 87205; 87804; 93005; 94640; 96365; 96367; 96375; 96376; 99285; J0456; J0696; J1100; J1200; J1885; J2270; J2405; J2920; J2930; J3490; J7030; J7060; J7620; J7626; Q0092; Q9967

== ENCOUNTER 2019-10-19 00:23 | Emergency (ER) | payer OTHER ==
[~2019-10-19] VITALS: Ht 160 cm; Wt 99.3 kg
[~2019-10-19 00:23] MED LIST changes: +ACET-9525 PO; +BECL10.62 IH; +DOXY100C9 PO; -MORP4SOL10 IVP; -ONDA2SOL45 IVP; +ONDA4TAB PO; +PRED20TA5 PO; -PRO5 PO; -TRAM50TA3 PO; -VAN500I PO; -Vancomycin Per Pharmacy MC
[2019-10-19 00:44] VITALS: BP 111/71
[2019-10-19] MEDS: NACL 0.9% 1,000 ML IV ONE (00:49)
[2019-10-19] MEDS: ACETAMIN/CODEINE 120/12MG-5ML 5 ML UDC PO ONE (00:50)
[2019-10-19] MEDS: LORazepam 2 MG/ML VIAL IVP ONE (00:50)
--- NOTE | 2019-10-19 00:53 | NUR ---
PT AMBULATED TO BED 10
--- NOTE | 2019-10-19 01:36 | NUR ---
X-Ray at bedside.
--- NOTE | 2019-10-19 01:45 | NUR ---
24 year old female patient presents to the emergency department with c/o SOB x 1 week. pt presents with nausea, vomiting, pleuritic chest pain, headache, dizziness. upon assessment, pt a/o x 4. denies blurry vision. cbl sounds. heart sounds equal and regular. abdomen soft and nontender. bowel sounds normoactive. presents with a lympatic node of the chest. patient connected to cardiac monitoring and pulse oximetry. denies any injury or trauma. awaiting MSE. pmhx: Kristi's Rawls syndrome, asthma, lymphatic nodes, splenectomy, cholecystectomy. +Covid. nka
--- NOTE | 2019-10-19 01:48 | NUR ---
Dr. Louise examining patient.
--- NOTE | 2019-10-19 02:15 | NUR ---
RT wrist PIVC initiated.
[2019-10-19 02:19] LABS: BASOPHILS # (AUTO) 0.1 K/uL (0.00-0.22); BASOPHILS % (AUTO) 0.7 % (0.0-2.0); EOSINOPHILS # (AUTO) 0.2 K/uL (0-0.4); EOSINOPHILS % (AUTO) 1.8 % (0.0-4.0); HEMATOCRIT 38.1 % (36-48); HEMOGLOBIN 12.5 g/dL (12.0-16.0); LYMPHOCYTES # (AUTO) 2.4 K/uL (2.5-16.5); LYMPHOCYTES % (AUTO) 18.3 % (20.5-51.1); MEAN CORPUSCULAR HEMOGLOBIN 30 pg (27-31); MEAN CORPUSCULAR HGB CONC 33 g/dL (33-37); MEAN CORPUSCULAR VOLUME 91.7 fL (80-94); MONOCYTES # (AUTO) 1.2 K/uL (0.8-1.0); MONOCYTES % (AUTO) 9.3 % (1.7-9.3); NEUTROPHILS % (AUTO) 69.9 % (42.2-75.2); PLATELET COUNT (AUTO) 419 K/uL (140-450); RED BLOOD CELL COUNT(AUTO) 4.15 MIL/uL (4.20-5.40); RED CELL DISTRIBUTION WIDTH 13.6 % (11.6-13.7); WHITE BLOOD COUNT (AUTO) 12.9 K/uL (4.8-10.8)
[2019-10-19 02:44] LABS: ALBUMIN 3.5 g/dL (3.4-5.0); ANION GAP 12.8 (8-16); CARBON DIOXIDE 24.3 mmol/L (21-32); CREATININE 0.9 mg/dL (0.6-1.3); POTASSIUM 4.1 mmol/L (3.5-5.1); TOTAL BILIRUBIN 0.4 mg/dL (0.0-1.0)
--- NOTE | 2019-10-19 03:30 | NUR ---
LT forearm Pivc initiated. tolerated well.
[2019-10-19] MEDS: KETOROLAC 30 MG/ML VIAL IVP ONE (04:20)
--- NOTE | 2019-10-19 05:22 | NUR ---
PT TAKEN TO CT
--- NOTE | 2019-10-19 05:39 | NUR ---
returned from CT via w/c
[2019-10-19 07:34] VITALS: BP 119/62
--- NOTE | 2019-10-19 07:35 | NUR ---
Patient discharged with v/s stable. Written and verbal after care instructions given and explained. Patient alert, oriented and verbalized understanding of instructions. Ambulatory with steady gait. All questions addressed prior to discharge. ID band removed. Patient advised to follow up with PMD. Rx of GUAIATUSSIN, AZITHROMYCIN given. Patient educated on indication of medication including possible reaction and side effects. Opportunity to ask questions provided and answered.
== END 2019-10-19 07:35 | disposition home or self-care (01) ==
LOC: MED 00:23
DX: U07.1 COVID-19 (principal); J02.9 Acute pharyngitis, unspecified; J98.59 Other diseases of mediastinum, not elsewhere classified; R06.00 Dyspnea, unspecified; J45.909 Unspecified asthma, uncomplicated; Z79.899 Other long term (current) drug therapy; Z90.49 Acquired absence of other specified parts of digestive tract; Z98.890 Other specified postprocedural states
CPT/HCPCS: 36415; 71045; 71275; 80053; 83605; 85025; 85379; 87040; 87086; 96361; 96374; 96375; 99285; J1885; J2060; J7030; Q0092; Q9967

== ENCOUNTER 2019-10-28 07:15 | Emergency (ER) | payer OTHER ==
[~2019-10-28] VITALS: Ht 160 cm; Wt 94.8 kg
[~2019-10-28 07:15] MED LIST changes: -ACET-9525 PO; -BECL10.62 IH; -DOXY100C9 PO; -ONDA4TAB PO; -PRED20TA5 PO
[2019-10-28 07:17] VITALS: BP 152/88
[2019-10-28] MEDS: MORPHINE SULFATE 4 MG/ML SYR IM ONE (07:59)
[2019-10-28] MEDS: diazePAM 5 MG TAB PO ONE (08:21)
[2019-10-28] MEDS: KETOROLAC 30 MG/ML VIAL IM ONE (08:21)
[2019-10-28] MEDS ORDERED: DICYCLOMINE HCL LIQUID 10 MG/5 ML UDC ONE (09:26)
[2019-10-28] MEDS ORDERED: LIDOCAINE VISCOUS 2% 20 ML UDC ONE (09:26)
[2019-10-28] MEDS ORDERED: ALUMINUM HYD/MAG/SIMETHICONE 30 ML UDC ONE (09:26)
[2019-10-28] MEDS: DICYCLOMINE HCL LIQUID 20 MG, ALUMINUM HYD/MAG/SIMETHICONE 30 ML, LIDOCAINE VISCOUS 2% ... PO ONE ×3 (09:33)
[2019-10-28] MEDS ORDERED: cefTRIAXone 1,000 MG VIAL ONE (09:55)
[2019-10-28] MEDS ORDERED: BUSP15TA3 PO (10:09)
[2019-10-28] MEDS ORDERED: LAM25 PO (10:09)
[2019-10-28 10:20] LABS: BASOPHILS # (AUTO) 0.1 K/uL (0.00-0.22); BASOPHILS % (AUTO) 0.4 % (0.0-2.0); EOSINOPHILS # (AUTO) 0.2 K/uL (0-0.4); EOSINOPHILS % (AUTO) 0.8 % (0.0-4.0); HEMOGLOBIN 14.3 g/dL (12.0-16.0); LYMPHOCYTES # (AUTO) 1.9 K/uL (2.5-16.5); MEAN CORPUSCULAR HEMOGLOBIN 30 pg (27-31); MEAN CORPUSCULAR HGB CONC 33 g/dL (33-37); MEAN CORPUSCULAR VOLUME 90.3 fL (80-94); MONOCYTES # (AUTO) 1.3 K/uL (0.8-1.0); MONOCYTES % (AUTO) 5.5 % (1.7-9.3); NEUTROPHILS # (AUTO) 19.9 K/uL (1.8-7.7); NEUTROPHILS % (AUTO) 85.3 % (42.2-75.2); PLATELET COUNT (AUTO) 438 K/uL (140-450); RED BLOOD CELL COUNT(AUTO) 4.76 MIL/uL (4.20-5.40); RED CELL DISTRIBUTION WIDTH 13.6 % (11.6-13.7); WHITE BLOOD COUNT (AUTO) 23.4 K/uL (4.8-10.8)
[2019-10-28] MEDS ORDERED: VANCOMYCIN 1,000 MG VIAL ONE (10:33)
[2019-10-28] MEDS: VANCOMYCIN 1,000 MG in DEXTROSE 5% 250 ML IV ONE (10:38)
[2019-10-28 10:41] LABS: ALBUMIN 4.1 g/dL (3.4-5.0); ANION GAP 17.4 (8-16); CARBON DIOXIDE 21.2 mmol/L (21-32); POTASSIUM 3.6 mmol/L (3.5-5.1); TOTAL BILIRUBIN 0.8 mg/dL (0.0-1.0)
[2019-10-28] MEDS: MORPHINE SULFATE 4 MG/ML SYR IVP ONE (10:56)
[2019-10-28 12:42] VITALS: BP 139/84
== END 2019-10-28 12:42 | disposition short-term general hospital (02) ==
LOC: MED 07:15
DX: M86.68 Other chronic osteomyelitis, other site (principal); D72.829 Elevated white blood cell count, unspecified; L03.211 Cellulitis of face; M89.8X9 Other specified disorders of bone, unspecified site; J45.909 Unspecified asthma, uncomplicated; Z90.49 Acquired absence of other specified parts of digestive tract; Z90.81 Acquired absence of spleen; Z79.899 Other long term (current) drug therapy
CPT/HCPCS: 36415; 70486; 80053; 85025; 85651; 86140; 87040; 96365; 96366; 96372; 96375; 99284; J0696; J1885; J2270; J3370; 96374; J7060

== ENCOUNTER 2019-11-10 20:59 | Emergency (ER) | payer OTHER ==
[~2019-11-10] VITALS: Ht 160 cm; Wt 96.2 kg
[~2019-11-10 20:59] MED LIST changes: -BUS5 PO; +BUSP15TA3 PO
[2019-11-10 21:03] VITALS: BP 138/80
--- NOTE | 2019-11-10 21:15 | NUR ---
PT TAKEN TO BED 3
--- NOTE | 2019-11-10 21:24 | NUR ---
24 Y/O FEMALE PRESENTS TO ER WITH C/O RIGHT JAW PAIN X 30 MIN AGO. 12/18 PAIN. PT STATES SHE WAS AT [employer] WITH BOYFRIEND, WHEN SHE ATE A [employer] AND HEARD A "LOUD CRACK" ON THE RIGHT SIDE OF HER JAW, AND IMMEDIATELY BEGAN TO HAVE JAW, AND RIGHT EAR PAIN. PT STATES SHE HAS TRACIE-PEÑA SYNDROME. DENIES NAUSEA, VOMITING, DIARRHEA, SOB, COUGH, AFEBRILE. R/R EQUAL AND UNLABORED. VSS. LMP 10/31/19. SIDE RAIL X1, BED IN LOW POSITION, WILL CONTINUE TO MONITOR. NKDA PMH: Lymphangioleiomyomatosis, TRACIE-PEÑA SYNDROME, ASTHMA, BRADYCARDIA
[2019-11-10] MEDS ORDERED: KETOROLAC 30 MG/ML VIAL IVP ONE (21:50)
[2019-11-10] MEDS ORDERED: MORPHINE SULFATE 4 MG/ML SYR IVP ONE (21:50)
[2019-11-10 23:20] VITALS: BP 138/80
--- NOTE | 2019-11-10 23:20 | NUR ---
Patient discharged with v/s stable. Written and verbal after care instructions given and explained. Patient verbalized understanding. Ambulatory with steady gait. All questions addressed prior to discharge. Advised to follow up with PMD.
== END 2019-11-10 23:20 | disposition home or self-care (01) ==
LOC: MED 20:59
DX: M27.2 Inflammatory conditions of jaws (principal); K04.7 Periapical abscess without sinus; R68.84 Jaw pain; J45.909 Unspecified asthma, uncomplicated; Z98.890 Other specified postprocedural states; Z79.899 Other long term (current) drug therapy
CPT/HCPCS: 70100; 96374; 96375; 99284; J1885; J2270

== ENCOUNTER 2020-03-07 13:29 | Emergency (ER) | payer OTHER ==
[~2020-03-07] VITALS: Ht 162.6 cm; Wt 101.2 kg
[2020-03-07 14:16] VITALS: BP 142/58
--- NOTE | 2020-03-07 14:18 | NUR ---
Patient given urine cup and ambulated to lobby
--- NOTE | 2020-03-07 15:20 | NUR ---
Patient discharged with v/s stable. Written and verbal after care instructions given and explained. Patient alert, oriented and verbalized understanding of instructions. Ambulatory with steady gait. All questions addressed prior to discharge. ID band removed. Patient advised to follow up with PMD. Rx of norco, ibuprofen, and keflex given. Patient educated on indication of medication including possible reaction and side effects. Opportunity to ask questions provided and answered.
== END 2020-03-07 15:20 | disposition home or self-care (01) ==
LOC: MED 13:29
DX: N39.0 Urinary tract infection, site not specified (principal); M54.5 Low back pain; R03.0 Elevated blood-pressure reading, without diagnosis of hypertension; J45.909 Unspecified asthma, uncomplicated; Z79.899 Other long term (current) drug therapy
CPT/HCPCS: 81002; 81025; 87086; 99283

== ENCOUNTER 2020-04-17 23:18 | Emergency (ER) | payer OTHER ==
[~2020-04-17] VITALS: Ht 160 cm; Wt 99.8 kg
[2020-04-17 23:22] VITALS: BP 98/59
--- NOTE | 2020-04-17 23:31 | NUR ---
PT W/C ASSISTED TO ER BED 1
--- NOTE | 2020-04-17 23:37 | NUR ---
24 Y/O FEMALE C/O SOB X 2 HRS , +FEVER , +CHILLS. PT STATES INTERMIITENT 10/10 PAIN RADIATING BACK. LUNG SOUNDS CRACKLES. OBSERVED LUMP ON CHEST D/T LYMPHANGIO MITOSIS. PMH: LYMPHANGIO MITOSIS, GORHAMS SYNDROME NKA PER PT SHE CANNOT TAKE TYLENOL D/T PREVIOUS OVERDOSE
--- NOTE | 2020-04-18 00:22 | NUR ---
Dr. Louise examining patient.
[2020-04-18] MEDS ORDERED: diphenhydrAMINE 50 MG/ML VIAL IVP ONE (00:25)
[2020-04-18] MEDS ORDERED: KETOROLAC 30 MG/ML VIAL IVP ONE ×2 (00:25→03:40)
[2020-04-18] MEDS ORDERED: MORPHINE SULFATE 10 MG/ML VIAL IVP ONE (00:25)
[2020-04-18] MEDS ORDERED: NACL 0.9% 1,000 ML IV ONE (00:25)
--- NOTE | 2020-04-18 00:45 | NUR ---
LAB AT BEDSIDE
--- NOTE | 2020-04-18 00:50 | NUR ---
EAGLE SAMPLE COLLECTED AND HANDED TO EDGE PLUGGER
--- NOTE | 2020-04-18 01:07 | NUR ---
PT USING BEDSIDE COMMODE
[2020-04-18 01:12] LABS: BASOPHILS % (AUTO) 0.1 % (0.0-2.0); EOSINOPHILS % (AUTO) 0.1 % (0.0-4.0); HEMATOCRIT 45.4 % (36-48); HEMOGLOBIN 15.1 g/dL (12.0-16.0); LYMPHOCYTES # (AUTO) 0.7 K/uL (2.5-16.5); LYMPHOCYTES % (AUTO) 4.7 % (20.5-51.1); MEAN CORPUSCULAR HEMOGLOBIN 30 pg (27-31); MEAN CORPUSCULAR HGB CONC 33 g/dL (33-37); MONOCYTES # (AUTO) 0.1 K/uL (0.8-1.0); MONOCYTES % (AUTO) 0.9 % (1.7-9.3); NEUTROPHILS % (AUTO) 94.2 % (42.2-75.2); PLATELET COUNT (AUTO) 375 K/uL (140-450); RED BLOOD CELL COUNT(AUTO) 4.99 MIL/uL (4.20-5.40); RED CELL DISTRIBUTION WIDTH 14.6 % (11.6-13.7)
[2020-04-18 01:20] LABS: APPEARANCE,URINE CLEAR (CLEAR); BILIRUBIN,URINE NEGATIVE (NEGATIVE); BLOOD, URINE NEGATIVE (NEGATIVE); COLOR,URINE YELLOW (YELLOW); LEUKOCYTE ESTERASE ,URINE NEGATIVE (NEGATIVE); NITRITE, URINE NEGATIVE (NEGATIVE); PH,URINE 5.5 (5.0-9.0); UGLUCOSE NEGATIVE (NEGATIVE)
[2020-04-18 01:36] LABS: PROTHROMBIN TIME 10.4 secs (10.8-13.4)
[2020-04-18 01:38] LABS: ALBUMIN 4.4 g/dL (3.4-5.0); CARBON DIOXIDE 24.7 mmol/L (21-32); POTASSIUM 3.7 mmol/L (3.5-5.1); TOTAL BILIRUBIN 0.6 mg/dL (0.0-1.0)
--- NOTE | 2020-04-18 03:18 | NUR ---
PT RESTING IN BED, CHEST RISE IS SYMMETRICAL. RESPIRATIONS EVEN AND UNLABORED. CHEST RISE IS SYMMETRICAL. WILL CONTINUE TO MONITOR.
--- NOTE | 2020-04-18 03:35 | NUR ---
PT STATES 09/17 PAIN, "THE MEDS ARE WEARING OFF" AND "I CAN'T BREATHE IN DEEPLY" ERMD MADE AWARE
[2020-04-18] MEDS ORDERED: HYDROcodone/APAP 5/325 MG 1 TAB TAB PO ONE (03:40)
[2020-04-18 04:24] VITALS: BP 92/46
--- NOTE | 2020-04-18 04:24 | NUR ---
Patient discharged with v/s stable. Written and verbal after care instructions given and explained. Patient alert, oriented and verbalized understanding of instructions. Ambulatory with steady gait. All questions addressed prior to discharge. ID band removed. Patient advised to follow up with PMD. Rx of NORCO AND ALBUTEROL given. Patient educated on indication of medication including possible reaction and side effects. Opportunity to ask questions provided and answered.
== END 2020-04-18 04:24 | disposition home or self-care (01) ==
LOC: MED 23:18
DX: R50.9 Fever, unspecified (principal); R07.9 Chest pain, unspecified; R06.00 Dyspnea, unspecified; J45.909 Unspecified asthma, uncomplicated; Z79.899 Other long term (current) drug therapy; Z20.828 Contact with and (suspected) exposure to other viral communicable diseases
CPT/HCPCS: 36415; 71045; 80053; 81003; 83605; 85025; 85610; 87040; 87086; 87426; 93005; 96361; 96374; 96375; 96376; 99285; J1200; J1885; J2270; J7030

== ENCOUNTER 2020-05-02 15:12 | Emergency (ER) | payer OTHER ==
[~2020-05-02] VITALS: Ht 160 cm; Wt 98.0 kg
[2020-05-02 15:16] VITALS: BP 110/62
[2020-05-02] MEDS ORDERED: PENICILLIN G BENZATHINE L-A 1.2 MU/2 ML SYR IM ONE (15:35)
[2020-05-02 16:06] VITALS: BP 110/62
--- NOTE | 2020-05-02 16:07 | NUR ---
Patient discharged with v/s stable. Written and verbal after care instructions given and explained. Patient alert, oriented and verbalized understanding of instructions. Wheel Chair Assisted with to car. All questions addressed prior to discharge. ID band removed. Patient advised to follow up with PMD. Rx of PREDNISONE 20MG PO DAILY given. Patient educated on indication of medication including possible reaction and side effects. Opportunity to ask questions provided and answered.
== END 2020-05-02 16:07 | disposition home or self-care (01) ==
LOC: MED 15:12
DX: J02.0 Streptococcal pharyngitis (principal); J45.909 Unspecified asthma, uncomplicated; Z88.6 Allergy status to analgesic agent; Z79.899 Other long term (current) drug therapy
CPT/HCPCS: 96372; 99283; J0561

== ENCOUNTER 2020-10-17 09:20 | Emergency (ER) | payer OTHER ==
[~2020-10-17] VITALS: Ht 160 cm; Wt 99.8 kg
[2020-10-17 09:32] VITALS: BP 109/66
[2020-10-17] MEDS ORDERED: KETOROLAC 30 MG/ML VIAL IM ONE (10:20)
[2020-10-17] MEDS ORDERED: HYDROcodone/APAP 7.5/325 MG 1 TAB PO ONE (10:20)
[2020-10-17 11:16] LABS: BASOPHILS # (AUTO) 0.1 K/uL (0.00-0.22); BASOPHILS % (AUTO) 0.6 % (0.0-2.0); EOSINOPHILS # (AUTO) 0.3 K/uL (0-0.4); HEMATOCRIT 40.2 % (36-48); HEMOGLOBIN 13.5 g/dL (12.0-16.0); LYMPHOCYTES # (AUTO) 1.8 K/uL (2.5-16.5); LYMPHOCYTES % (AUTO) 20.4 % (20.5-51.1); MEAN CORPUSCULAR HEMOGLOBIN 31 pg (27-31); MEAN CORPUSCULAR HGB CONC 34 g/dL (33-37); MEAN CORPUSCULAR VOLUME 90.9 fL (80-94); NEUTROPHILS # (AUTO) 5.8 K/uL (1.8-7.7); PLATELET COUNT (AUTO) 480 K/uL (140-450); RED BLOOD CELL COUNT(AUTO) 4.42 MIL/uL (4.20-5.40); RED CELL DISTRIBUTION WIDTH 14.6 % (11.6-13.7); WHITE BLOOD COUNT (AUTO) 8.9 K/uL (4.8-10.8)
[2020-10-17 11:26] LABS: ANION GAP 12.9 (8-16); CARBON DIOXIDE 25.1 mmol/L (21-32); CREATININE 0.7 mg/dL (0.6-1.3)
== END 2020-10-17 13:44 | disposition home or self-care (01) ==
LOC: MED 09:20
DX: R51.9 Headache, unspecified (principal); J45.909 Unspecified asthma, uncomplicated; Z88.5 Allergy status to narcotic agent; Z79.899 Other long term (current) drug therapy
CPT/HCPCS: 36415; 80048; 85025; 96372; 99283; J1885